=== PATIENT | male | born 1940 | race Caucasian/White ===

== ENCOUNTER 2016-11-22 13:07 | Inpatient (IN) | payer BC, MEDICARE ==
[2016-11-22] MEDS ORDERED: Ketorolac INJ* 30 MG/ML 1 ML VIAL IV ONE (13:49)
[2016-11-22] MEDS ORDERED: NS 0.9% 1000 ML* 1,000 ML IV ONE (13:49)
[2016-11-22 14:21] LABS: Hematocrit 42 % (42-52); Hemoglobin 13.8 g/dl (14.0-18.0); Mean Corpuscular HGB Conc 33 g/dl (31-36); Mean Corpuscular Hemoglobin 33 pg (27-31); Mean Corpuscular Volume 102 fL (80-94); Mean Platelet Volume 8 um3 (7.4-10.4); Red Blood Count 4.14 10^6/ul (4.0-5.4); Red Cell Distribution Width 16 % (10.5-15)
--- NOTE | 2016-11-22 14:35 | RAD ---
HISTORY: Shortness of breath COMPARISONS: May 14, 2007 VIEWS:1: Single frontal portable view of the chest at 2:15 PM FINDINGS: LINES AND TUBES: None. CARDIOMEDIASTINAL SILHOUETTE: The cardiac silhouette is enlarged. The cardiomediastinal silhouette is otherwise normal for portable technique. PLEURA: The costophrenic angles are sharp. No pleural abnormalities are noted. LUNG PARENCHYMA: The lungs are clear. ABDOMEN: The upper abdomen is clear. There is no subphrenic gas. BONES AND SOFT TISSUES: The patient is status post median sternotomy. IMPRESSION: CARDIOMEGALY
[2016-11-22 14:41] LABS: Albumin 3.7 g/dL (3.2-5.2); BUN/Creatinine Ratio 16.8 (8-20); C Reactive Protein 5.23 mg/L (< 5.00); Calcium 8.8 mg/dL (8.6-10.3); EGFR African American 61.5 (>60); EGFR Non-African American 47.8 (>60); Globulin 3.3 g/dL (2-4); Potassium 4.2 mmol/L (3.5-5.0)
[2016-11-22 14:42] LABS: Troponin I 0.01 ng/mL (<0.04)
[2016-11-22] MEDS ORDERED: Metoprolol Tartrate IV* 1 MG/ML 5 ML VIAL IV ONE (15:32)
[2016-11-22] MEDS ORDERED: Metoprolol Tartrate IV* 1 MG/ML 5 ML VIAL IV PRN ×2 (16:00→18:18)
[2016-11-22 16:02] LABS: Urine Bacteria 1+ (Absent); Urine Bilirubin Negative (Negative); Urine Glucose Negative (Negative); Urine Nitrite Positive (Negative)
[2016-11-22] MEDS ORDERED: Ciprofloxacin 400MG IVPREMIX(* 400 MG/200 ML BAG IVPB ONE (16:04)
[2016-11-22] MEDS ORDERED: Ondansetron INJ* 2 MG/ML VIAL IV PRN (18:15)
[2016-11-22] MEDS ORDERED: Acetaminophen TAB* 325 MG PO PRN (18:15)
[2016-11-22] MEDS ORDERED: NS 0.9% 1000 ML* 1,000 ML IV SCH ×2 (18:15→22:42)
--- NOTE | 2016-11-22 21:45 | HP ---
HISTORY AND PHYSICAL: ADDENDUM: Mr. Elmore is a 76-year-old male with history of status post mitral valve replacement with mechanical valve as well as atrial fibrillation, who presented to the hospital complaining of chills and rigors and he was noted to have slightly elevated temperature of 99.7 and possibility of UTI on urinalysis. He also was noted to be in atrial fibrillation with rapid ventricular response with heart rate into 130s to 120s. The patient is going to be placed on antibiotics and admitted to the hospital for further management as further described in the history and physical dictated by Michael Nava on with which I agree. [id number]/CPS #: [id number] MTDD
[2016-11-22] MEDS: Atorvastatin* 40 MG TAB PO SCH (21:53)
[2016-11-22] MEDS: Warfarin TAB(*) 2.5 MG PO SCH (21:53)
[2016-11-22] MEDS: cefTRIAXone VIAL(*) 1,000 MG in NS 0.9% 50 ML* 50 ML IVPB SCH (21:56)
--- NOTE | 2016-11-22 22:44 | HP ---
ATTENDING PHYSICIAN ADDENDUM NOW INCLUDED ON THIS REPORT HISTORY AND PHYSICAL: DATE OF ADMISSION: 11/22/16 PRIMARY CARE PROVIDER: Dr. Freire. ATTENDING PHYSICIAN WHILE IN THE HOSPITAL: Pascale Ventura MD* (report dictated by Michael Nava NP) CHIEF COMPLAINT: 1. Chills. 2. Shaking. HISTORY OF PRESENT ILLNESS: Mr. Elmore is a 76-year-old male patient who carries a history of AFib, hypothyroidism, hyperlipidemia and hypertension. He comes in today stating that they called 911 because he was having significant amount of chills and rigors that started right around suddenly on noon today. He states he has been having some trouble urination for the last day or so. He has noticed some dysuria and hurting to urinate. He denied having any flank pain or abdominal pain. No associated nausea or vomiting. No diarrhea. He states he has not been having any chest pain and no shortness of breath, no worse than his baseline. He was concerned because of the rigors. His friends called EMS. He was evaluated and they felt that he should come to the hospital. It was noticed that his blood pressure was low on the scene. He came into the ER, it was noted that he was in AFib with RVR and he was also noted to have blood pressure was stable, but it was ultimately found that he appeared to have UTI and because of these findings, the hospitalist service was asked to evaluate the patient. Again denied any other symptoms. No chest pain, no shortness of breath, no orthopnea, and he is not having any weight gain. He came in and was evaluated and we were asked to evaluate for admission. PAST MEDICAL HISTORY: Significant for: 1. Hypothyroidism. 2. Hyperlipidemia. 3. Hypertension. 4. Atrial fibrillation. PAST SURGICAL HISTORY: He has had a mitral valve replacement, it is mechanical. He is on chronic warfarin. HOME MEDICATIONS: According to the list that we were able to obtain include: 1. Warfarin 3.75 mg at bedtime. 2. Warfarin 2.5 mg Monday, Monday, and Monday. 3. Zocor 80 mg p.o. at bedtime. 4. Metoprolol 25 mg in the morning and 50 mg at bedtime. 5. Synthroid 125 mcg daily. 6. Lasix 40 mg a day. 7. Aspirin 81 mg daily. 8. Amiodarone 200 mg daily. ALLERGIES TO MEDICATIONS: Include no known drug allergies. FAMILY HISTORY: His mother had a history of cancer. Father had a history of rheumatic heart disease. SOCIAL HISTORY: He does not smoke. He does not drink alcohol. He lives alone. Surrogate decision maker is his second cousin, Ed. REVIEW OF SYSTEMS: There is no documented fever. He does admit to having chills and rigors. Denies any significant weight change. There was no double vision. There is no ear discharge. He denied having any rhinorrhea. There was no sore throat. No thyroid enlargement. Denied having any chest pain. No orthopnea, no nocturnal dyspnea. There was no abdominal pain. No nausea, no vomiting, no dysuria, no frequency. There was no loss of consciousness, no pruritus. There is no skin ulceration. Review of 14 systems completed, all others negative. PHYSICAL EXAMINATION GENERAL: At this time, Mr. Elmore is a 76-year-old male patient, he is sitting in the ER stretcher. He does not appear to be in any acute distress. VITAL SIGNS: Now currently reveals blood pressure 152/82 with pulse of 105, respirations were 20, O2 sat 96%, temperature 99.7. HEENT: Head is atraumatic and normocephalic. Eyes: EOMs are intact. His sclerae were anicteric, not pale. Throat: Oral mucosa appeared to be dry. No oropharyngeal erythema. NECK: Supple. LUNGS: He had wheezing in the right lower lobe only and equal diaphragmatic expansion. HEART: Sounds S1 and S2, irregularly irregular rate. No murmurs, rubs, or gallops. ABDOMEN: Soft, it was flat, nontender. Bowel sounds are present. He had no CVA tenderness. EXTREMITIES: He had what appears to be chronic lymphedema in the lower extremities and +2 pitting edema. He is able to move all 4 extremities with 5/ 5 strength. NEUROLOGIC: The patient is awake. He is alert. He is oriented x3. His tongue is midline. Sack Sorter were equal. No gross focal deficits. SKIN: Intact. LABORATORY DATA: Today revealed WBC of 8.0, RBC of 4.14, hemoglobin 13.8, hematocrit of 42, platelet count of 171. INR was 3.02. His sodium was 137, potassium 4.2, chloride 99, bicarb 31, BUN 24, creatinine 1.43. I do not have a previous for comparison. Glucose of 111, lactic 1.4, calcium 8.8, total bili 1.0, AST 18, ALT 13, alk phos 58, troponin 0.01, albumin of 3.7. Urine showed trace ketones, 1+ blood, positive nitrite, 1+ bacteria, 3+ rbc's, 3+ wbc's. There was a chest x-ray obtained today as well, which revealed cardiomegaly. They did not appreciate any infiltrates or effusion. EKG today shows atrial fibrillation, rate of 105. No ST elevations or T-wave inversions. It was reviewed with the previous EKG. The previous EKG showed a sinus bradycardia and that was from 2006. Old medical records were reviewed. ASSESSMENT AND PLAN: Mr. Elmore is a 76-year-old male patient coming into the ER today with complaints of chills and not feeling well. I suspect that he was having rigors probably secondary to the fact that he has a urinary tract infection. He will be admitted under inpatient status for: 1. Urinary tract infection with rigors. At this point, we will go ahead and panculture the patient. He got a liter of fluids in the ER, I do not want to give him too much too fast. He did have a little bit of wheeze on exam, but I think he is a little dry. I am going to give him another liter at 75 an hour over the night and I will continue to follow him. We will give him Rocephin prior to panculture him. We will continue to follow. 2. Atrial fibrillation with rapid ventricular response. I will go ahead and continue beta-blockers. He has been taking them at home. I have ordered p.r.n. Lopressor for rate sustained greater than 120. 3. Hypothyroidism. Continue his Synthroid. 4. Hyperlipidemia. Continue his statin therapy. 5. Hypertension. Continue meds as prescribed. 6. History of mitral valve replacement. He does have clicking on exam when I listened to auscultated heart sounds. His INR is right where it should be. We will continue with this. 7. Code status. Full code. 8. Fluids, electrolytes, and nutrition. He can have a heart healthy diet. TIME SPENT: Time spent on the admission was 70 minutes, greater than half the time was spent [id number] with the patient obtaining my history and physical, and the other half time was spent going over the plan of care with the patient and implementing plan of care. I did discuss the plan of care with my attending, Dr. Ventura, she is in agreement. MICHAEL NAVA NP ADDENDUM: Mr. Elmore is a 76-year-old male with history of status post mitral valve replacement with mechanical valve as well as atrial fibrillation, who presented to the hospital complaining of chills and rigors and he was noted to have slightly elevated temperature of 99.7 and possibility of UTI on urinalysis. He also was noted to be in atrial fibrillation with rapid ventricular response with heart rate into 130s to 120s. The patient is going to be placed on antibiotics and admitted to the hospital for further management as further described in the history and physical dictated by Michael Nava on 11/22/16 with which I agree. PASCALE VENTURA MD CC: Dr. Freire * [id number]/CPS #: [id number]/CPS #: [id number] MTDZaira
[2016-11-23 04:45] LABS: Hematocrit 35 % (42-52); Hemoglobin 11.5 g/dl (14.0-18.0); Mean Corpuscular HGB Conc 33 g/dl (31-36); Mean Corpuscular Hemoglobin 34 pg (27-31); Mean Corpuscular Volume 102 fL (80-94); Mean Platelet Volume 8 um3 (7.4-10.4); Red Blood Count 3.44 10^6/ul (4.0-5.4); Red Cell Distribution Width 15 % (10.5-15); White Blood Count 14.4 10^3/ul (3.5-10.8)
[2016-11-23 04:47] LABS: Add Diff/Slide Review? Slide Review Added; Comments Flag Yes
[2016-11-23 04:49] LABS: BUN/Creatinine Ratio 17.9 (8-20); Calcium 7.6 mg/dL (8.6-10.3); EGFR African American 60.5 (>60); EGFR Non-African American 47.1 (>60)
[2016-11-23] MEDS: Levothyroxine TAB* 125 MCG TAB PO SCH (05:00)
[2016-11-23 05:37] LABS: Immature Granulocytes 22 % (0-9); Macrocytosis 1+; Microcytosis 1+; Neutrophil % 75 % (38-83)
[2016-11-23] MEDS: Metoprolol Tartrate TAB* 25 MG PO SCH (07:32)
[2016-11-23] MEDS ORDERED: NS 0.9% 1000 ML* 1,000 ML IV ONE ×2 (07:33→09:30)
[2016-11-23] MEDS: Aspirin EC Low Dose* 81 MG TAB.EC PO SCH (08:36)
[2016-11-23] MEDS: Amiodarone TAB* 200 MG PO SCH (08:36)
[2016-11-23] MEDS ORDERED: Metoprolol Tartrate TAB* 50 mg PO SCH ×2 (09:00→18:00)
[2016-11-23] MEDS ORDERED: Furosemide TAB* 40 MG PO SCH (09:00)
--- NOTE | 2016-11-23 10:01 | PN ---
Subjective Date of Service: 11/23/16 Interval History: Pt is feeling ok. He denies any lightheadedness/dizziness. No CP or SOB. Objective Active Medications: Acetaminophen (Tylenol Tab*) 650 mg PO Q4H PRN PRN Reason: FEVER/PAIN Amiodarone HCl (Cordarone Tab*) 200 mg PO DAILY [facility] Last Admin: 11/23/16 08:36 Dose: 200 mg Aspirin (Aspirin Ec Low Dose*) 81 mg PO DAILY [facility] Last Admin: 11/23/16 08:36 Dose: 81 mg Atorvastatin Calcium (Lipitor*) 40 mg PO BEDTIME [facility] Last Admin: 11/22/16 21:53 Dose: 40 mg Ceftriaxone Sodium 1,000 mg/ (Sodium Chloride) 50 mls @ 200 mls/hr IVPB Q24H [facility] Last Admin: 11/22/16 21:56 Dose: 200 mls/hr Sodium Chloride (Ns 0.9% 1000 Ml*) 1,000 mls @ 1,000 mls/hr IV ONCE ONE Stop: 11/23/16 10:29 Last Admin: 11/23/16 09:36 Dose: 1,000 mls/hr Levothyroxine Sodium (Synthroid Tab*) 125 mcg PO 0600 [facility] Last Admin: 11/23/16 05:00 Dose: 125 mcg Metoprolol Tartrate (Lopressor Iv*) 5 mg IV Q6H PRN PRN Reason: HEART RATE/PULSE Metoprolol Tartrate (Lopressor Tab*) 50 mg PO QPM [facility] Metoprolol Tartrate (Lopressor Tab*) 25 mg PO QAM [facility] Last Admin: 11/23/16 07:32 Dose: Not Given Ondansetron HCl (Zofran Inj*) 4 mg IV Q6H PRN PRN Reason: NAUSEA Warfarin Sodium (Coumadin Tab(*)) 3.75 mg PO SuTuThSa@1700 [facility] PRN Reason: Protocol Last Admin: 11/22/16 21:53 Dose: 3.75 mg Warfarin Sodium (Coumadin Tab(*)) 2.5 mg PO MoWeFr@1700 [facility] PRN Reason: Protocol Vital Signs 11/22/16 11/22/16 11/22/16 18:18 18:21 19:00 Temperature 99.7 F Pulse Rate 128 Respiratory 16 28 25 Rate Blood Pressure 115/76 82/52 (mmHg) O2 Sat by Pulse Oximetry 05/02/17 05/02/17 05/02/17 19:13 19:17 20:00 Temperature 98.1 F Pulse Rate 113 Respiratory 22 22 Rate Blood Pressure 90/54 87/51 (mmHg) O2 Sat by Pulse 95 95 Oximetry 11/22/16 11/22/16 11/23/16 20:05 20:36 00:21 Temperature 99.5 F Pulse Rate 187 Respiratory 20 Rate Blood Pressure 119/94 109/79 83/50 (mmHg) O2 Sat by Pulse 93 Oximetry 11/23/16 11/23/16 11/23/16 00:32 07:15 07:26 Temperature 99.0 F Pulse Rate 87 19 Respiratory 20 16 Rate Blood Pressure 84/44 (mmHg) O2 Sat by Pulse 97 97 Oximetry 11/23/16 11/23/16 08:34 08:53 Temperature Pulse Rate Respiratory Rate Blood Pressure 86/62 (mmHg) O2 Sat by Pulse 97 Oximetry Oxygen Devices in Use Now: None Appearance: Elderly, morbidly obese male sitting up in bed, NAD Eyes: No Scleral Icterus Ears/Nose/Mouth/Throat: Mucous Membranes Moist Respiratory: Symmetrical Chest Expansion and Respiratory Effort, Clear to Auscultation, - - irregularly irregular-mechanical click Cardiovascular: No Edema, - Abdominal: NL Sounds; No Tenderness; No Distention - obese Extremities: No Clubbing, Cyanosis, - - skin changes consistent with chronic venous stasis Skin: No Rash or Ulcers, No Nodules or Sclerosis Neurological: Alert and Oriented x 3 Result Diagrams: 11/23/16 04:28 11/23/16 04:28 Assess/Plan/Problems-Billing Mr Elmore is a 76 yo M who has a h/o HTN, afib, hypothyroidism and HLD who presented to the ER with c/o rigors and dysuria. - Patient Problems (1) Gram negative sepsis Current Visit: Yes Status: Acute Comment: The patient was found to have an Ecoli UTI on admission. Blood cultures from admission are positive for for gram negative bacilli (this is likely the same Ecoli cultured out of the patient's urine). The patient is septic based on sepsis 3 criteria with a SOFA score is currently 3 (1 point each for MAP<70, Plt <150 and Cr 1.2-1.9). The patient is severely septic based on sepis 2 criteria with tachycardia, bandemia/ leukocytosis and positive infection. Additionally the patient has evidence of end organ dysfunction with the elevated creatinine. Will continue treating with ceftriaxone for now-await urine/blood cultures and sensitivities. Aggressively hydrate the patient as he hypotensive secondary to the sepsis. (2) UTI (urinary tract infection) Current Visit: Yes Status: Acute Comment: Continue ceftriaxone. The urine is growing Ecoli. ? if pt should be treated likely prostatitis- will discuss with ID. (3) HTN (hypertension) Current Visit: Yes Status: Acute Code(s): I10 - ESSENTIAL (PRIMARY) HYPERTENSION SNOMED Code(s): 58113033 Comment: Pt is currently hypotensive. Will aggressively hydrate. Hold oral antihypertensives. If the patient's BP does not improve with several more liters of fluid or if he appears to be decompensating willl transfer to the ICU for consideration of pressors. (4) Afib Current Visit: Yes Status: Acute Code(s): I48.91 - UNSPECIFIED ATRIAL FIBRILLATION SNOMED Code(s): 28471724 Comment: Pt's HR is currently uncontrolled. Likely still related to being volume deplete. Will continue to hydrate and monitor the HR. Holding BBlocker secondary to hypotension. Continue amiodarone at home dose for now. Continue coumadin at home dose for both afib and h/o mechanical mitral valve. (5) Hypothyroid Current Visit: Yes Status: Acute Code(s): E03.9 - HYPOTHYROIDISM, UNSPECIFIED SNOMED Code(s): 24018794 Comment: Check TSH-continue home dose of synthroid. (6) DVT prophylaxis Current Visit: Yes Status: Acute Code(s): XEW5560 - SNOMED Code(s): 354915596 Comment: therapeutic INR (7) Full code status Current Visit: Yes Status: Acute Code(s): Z78.9 - OTHER SPECIFIED HEALTH STATUS SNOMED Code(s): 591237924
[2016-11-23] MEDS ORDERED: NS 0.9% 250 ML* 250 ML IV SCH (11:00)
--- NOTE | 2016-11-23 11:30 | RAD ---
INDICATION: PICC line insertion COMPARISON: November 22, 2016 TECHNIQUE: An AP portable view obtained at 1045 hours is submitted. FINDINGS: Bones/Soft Tissues: There are no acute bony findings. There is sternotomy with valvular surgery. There is interval placement of right-sided PICC catheter which is directed into the jugular vein Cardiomediastinal: The cardiac silhouette is enlarged.. Lungs: There are no infiltrates. The left costophrenic angle was not included in the [id number] Pleura: There are no pleural effusions. Other: None IMPRESSION: THE PICC CATHETER IS DIRECTED INTO THE INTERNAL JUGULAR VEIN. THE REMAINDER THE EXAMINATION IS UNCHANGED. FINDINGS CALLED TO FLOOR
[2016-11-23 11:48] LABS: TSH (Thyroid Stimulating Horm) 1.49 mcIU/mL (0.34-5.60)
--- NOTE | 2016-11-23 12:14 | RAD ---
INDICATION: Assess PICC catheter positioning COMPARISON: Chest x-ray same date TECHNIQUE: An AP portable view of the right neck is submitted. FINDINGS: The PICC catheter is in the internal jugular with approximately 9 cm of catheter within this vessel. IMPRESSION: THE PICC PICC CATHETER IS IN THE JUGULAR VEIN
--- NOTE | 2016-11-23 13:44 | RAD ---
INDICATION: PICC line reposition. COMPARISON: Comparison is made with a prior chest x-ray study of the same date from approximately 2 hours earlier. TECHNIQUE: A portable view of the chest was obtained. FINDINGS: The patient is status post sternotomy. The heart is moderately enlarged and unchanged. There is a PICC present which has been repositioned. The catheter tip projects in the right subclavian region and previously projected over the internal jugular vein region. The lungs are clear. No pleural effusion is seen. IMPRESSION: THE PICC CATHETER TIP PROJECTS IN THE RIGHT SUBCLAVIAN REGION.
[2016-11-23] MEDS: Warfarin TAB(*) 2.5 MG PO SCH (16:41)
[2016-11-23] MEDS: NS 0.9% 1000 ML* 1,000 ML IV SCH (16:43)
[2016-11-23] MEDS: Metoprolol Tartrate TAB* 50 mg PO SCH (18:35)
--- NOTE | 2016-11-23 19:50 | ED ---
J Luis Mustafa Matthew, scribed for Smooth Canales MD on 11/22/16 at 1343 . Shortness of Breath - HPI Summary HPI Summary: A 76 y/o male presents to the ED with SOB since this afternoon. The patient was at a [employer], a [employer] sale, when the other volunteers noticed he was uncontrollably shaking associated chills. In the ED it was noted that he had a fever. The patient denies SOB, nausea, and urinary symptoms. Hx of AFib and COPD. - History of Current Complaint Chief Complaint: EDShortnessOfBreath Time Seen by Provider: 11/22/16 13:21 Hx Obtained From: Patient Onset/Duration: Lasting Hours, Still Present Timing: Constant Current Severity: Moderate Dyspnea At: Rest Associated Signs & Symptoms: Fever, Chills - Allergy/Home Medications Allergies/Adverse Reactions: Allergies Allergy/AdvReac Type Severity Reaction Status Date / Time No Known Allergies Allergy Verified 11/22/16 14:15 Home Medications: Home Medications Amiodarone TAB* [Cordarone TAB*] 200 mg PO DAILY 11/22/16 [History Confirmed 09/09] Aspirin EC Low Dose* [Ecotrin EC Low Dose 81 MG*] 81 mg PO DAILY 11/22/16 [ History Confirmed 11/22/16] Furosemide TAB* [Lasix TAB*] 40 mg PO DAILY 11/22/16 [History Confirmed 11/22/16 ] Levothyroxine TAB* [Synthroid TAB*] 125 mcg PO DAILY 11/22/16 [History Confirmed 11/22/16] Metoprolol Tartrate TAB* [Lopressor TAB*] 25 mg PO QAM 11/22/16 [History Confirmed 11/22/16] Metoprolol Tartrate TAB* [Lopressor TAB*] 50 mg PO QPM 11/22/16 [History Confirmed 11/22/16] Simvastatin (NF) [Zocor (NF)] 80 mg PO BEDTIME 11/22/16 [History Confirmed 11/22] Warfarin TAB(*) [Coumadin TAB(*)] 2.5 mg PO MOWEFR 11/22/16 [History Confirmed 11/22/16] Warfarin TAB(*) [Coumadin TAB(*)] 3.75 mg PO SUTUTHSA 11/22/16 [History Confirmed 05/02/17] PMH/Surg Hx/FS Hx/Imm Hx Cardiovascular History: Reports: Hx Atrial Fibrillation Respiratory History: Reports: Hx Chronic Obstructive Pulmonary Disease (COPD) - Surgical History Surgery Procedure, Year, and Place: Heart Valve Replacement Infectious Disease History: Denies: Traveled Outside the [place] in Last 30 Days - Family History Family History: FHx of [place] - Social History Alcohol Use: Rare Hx Substance Use: No Substance Use Type: Reports: None Hx Tobacco Use: No Review of Systems Constitutional: Other - tremors Positive: Fever, Chills Eyes: Negative ENT: Negative Cardiovascular: Negative Negative: Chest Pain Positive: Shortness Of Breath Gastrointestinal: Negative Negative: Abdominal Pain, Vomiting, Diarrhea, Nausea Genitourinary: Negative Musculoskeletal: Negative Skin: Negative Neurological: Negative Psychological: Normal All Other Systems Reviewed And Are Negative: Yes Physical Exam Triage Information Reviewed: Yes Vital Signs On Initial Exam: Initial Vitals Temp Pulse Resp BP Pulse Ox 98.6 F 88 20 105/60 96 11/22/16 13:14 11/22/16 13:14 11/22/16 13:14 11/22/16 13:14 11/22/16 13:14 Vital Signs Reviewed: Yes Appearance: Positive: Well-Appearing, No Pain Distress, Obese - morbidly Skin: Positive: Warm, Skin Color Reflects Adequate Perfusion, Dry Head/Face: Positive: Normal Head/Face Inspection Eyes: Positive: EOMI, PABLO ENT: Positive: Normal ENT inspection Neck: Positive: Supple, Nontender Respiratory/Lung Sounds: Positive: Clear to Auscultation, Breath Sounds Present , Other - mildly tachypneic Cardiovascular: Positive: RRR Abdomen Description: Positive: Nontender, Soft Bowel Sounds: Positive: Present Musculoskeletal: Positive: Strength/ROM Intact Neurological: Positive: Alert, Oriented to Person Place, Time Psychiatric: Positive: Affect/Mood Appropriate Diagnostics - Vital Signs Vital Signs Temp Pulse Resp BP Pulse Ox 11/22/16 13:16 98.6 F 102 24 140/62 98 11/22/16 13:14 98.6 F 88 20 105/60 96 - Laboratory Lab Results: Lab Results 11/22/16 11/22/16 11/22/16 Range/Units 14:13 14:13 14:13 WBC 8.0 (3.5-10.8) 10^3/ul RBC 4.14 (4.0-5.4) 10^6/ul Hgb 13.8 L (14.0-18.0) g/dl Hct 42 (42-52) % MCV 102 H (80-94) fL MCH 33 H (27-31) pg MCHC 33 (31-36) g/dl RDW 16 H (10.5-15) % Plt Count 171 (150-450) 10^3/ul MPV 8 (7.4-10.4) um3 Neut % (Auto) 97.5 H (38-83) % Lymph % (Auto) 1.4 L (25-47) % [place] % (Auto) 0.4 L (1-9) % Eos % (Auto) 0.4 (0-6) % Baso % (Auto) 0.3 (0-2) % Absolute Neuts (auto) 7.8 H (1.5-7.7) 10^3/ul Absolute Lymphs (auto) 0.1 L (1.0-4.8) 10^3/ul Absolute Monos (auto) 0 (0-0.8) 10^3/ul Absolute Eos (auto) 0 (0-0.6) 10^3/ul Absolute Basos (auto) 0 (0-0.2) 10^3/ul Absolute Nucleated RBC 0.01 10^3/ul Nucleated RBC % 0.1 INR (Anticoag Therapy) 3.02 H (0.89-1.11) Sodium 137 (133-145) mmol/L Potassium 4.2 (3.5-5.0) mmol/L Chloride 99 L (101-111) mmol/L Carbon Dioxide 31 (22-32) mmol/L Anion Gap 7 (2-11) mmol/L BUN 24 (6-24) mg/dL Creatinine 1.43 H (0.67-1.17) mg/dL Est GFR ( Amer) 61.5 (>60) Est GFR (Non-Af Amer) 47.8 (>60) BUN/Creatinine Ratio 16.8 (8-20) Glucose 111 H (70-100) mg/dL Lactic Acid (0.5-2.0) mmol/L Calcium 8.8 (8.6-10.3) mg/dL Total Bilirubin 1.00 (0.2-1.0) mg/dL AST 18 (13-39) U/L ALT 13 (7-52) U/L Alkaline Phosphatase 58 (34-104) U/L Troponin I 0.01 (<0.04) ng/mL C-Reactive Protein 5.23 H (< 5.00) mg/L B-Natriuretic Peptide ( - 100) pg/mL Total Protein 7.0 (6.4-8.9) g/dL Albumin 3.7 (3.2-5.2) g/dL Globulin 3.3 (2-4) g/dL Albumin/Globulin Ratio 1.1 (1-3) Urine Color Urine Appearance Urine pH (5-9) Ur Specific [place] (1.010-1.030) Urine Protein (Negative) Urine Ketones (Negative) Urine Blood (Negative) Urine Nitrate (Negative) Urine Bilirubin (Negative) Urine Urobilinogen (Negative) Ur Leukocyte Esterase (Negative) Urine WBC (Auto) (Absent) Urine RBC (Auto) (Absent) Urine Bacteria (Absent) Urine Glucose (Negative) 11/22/16 11/22/16 11/22/16 Range/Units 14:13 14:13 15:43 WBC (3.5-10.8) 10^3/ul RBC (4.0-5.4) 10^6/ul Hgb (14.0-18.0) g/dl Hct (42-52) % MCV (80-94) fL MCH (27-31) pg MCHC (31-36) g/dl RDW (10.5-15) % Plt Count (150-450) 10^3/ul MPV (7.4-10.4) um3 Neut % (Auto) (38-83) % Lymph % (Auto) (25-47) % [place] % (Auto) (1-9) % Eos % (Auto) (0-6) % Baso % (Auto) (0-2) % Absolute Neuts (auto) (1.5-7.7) 10^3/ul Absolute Lymphs (auto) (1.0-4.8) 10^3/ul Absolute Monos (auto) (0-0.8) 10^3/ul Absolute Eos (auto) (0-0.6) 10^3/ul Absolute Basos (auto) (0-0.2) 10^3/ul Absolute Nucleated RBC 10^3/ul Nucleated RBC % INR (Anticoag Therapy) (0.89-1.11) Sodium (133-145) mmol/L Potassium (3.5-5.0) mmol/L Chloride (101-111) mmol/L Carbon Dioxide (22-32) mmol/L Anion Gap (2-11) mmol/L BUN (6-24) mg/dL Creatinine (0.67-1.17) mg/dL Est GFR ( Amer) (>60) Est GFR (Non-Af Amer) (>60) BUN/Creatinine Ratio (8-20) Glucose (70-100) mg/dL Lactic Acid 1.4 (0.5-2.0) mmol/L Calcium (8.6-10.3) mg/dL Total Bilirubin (0.2-1.0) mg/dL AST (13-39) U/L ALT (7-52) U/L Alkaline Phosphatase (34-104) U/L Troponin I (<0.04) ng/mL C-Reactive Protein (< 5.00) mg/L B-Natriuretic Peptide 252 H ( - 100) pg/mL Total Protein (6.4-8.9) g/dL Albumin (3.2-5.2) g/dL Globulin (2-4) g/dL Albumin/Globulin Ratio (1-3) Urine Color Yellow Urine Appearance Cloudy Urine pH 6.0 (5-9) Ur Specific [place] 1.017 (1.010-1.030) Urine Protein Negative (Negative) Urine Ketones Trace H (Negative) Urine Blood 1+ H (Negative) Urine Nitrate Positive H (Negative) Urine Bilirubin Negative (Negative) Urine Urobilinogen Negative (Negative) Ur Leukocyte Esterase 3+ H (Negative) Urine WBC (Auto) 3+(>20/hpf) H (Absent) Urine RBC (Auto) 3+(>10/hpf) H (Absent) Urine Bacteria 1+ H (Absent) Urine Glucose Negative (Negative) 11/22/16 Range/Units 18:09 WBC (3.5-10.8) 10^3/ul RBC (4.0-5.4) 10^6/ul Hgb (14.0-18.0) g/dl Hct (42-52) % MCV (80-94) fL MCH (27-31) pg MCHC (31-36) g/dl RDW (10.5-15) % Plt Count (150-450) 10^3/ul MPV (7.4-10.4) um3 Neut % (Auto) (38-83) % Lymph % (Auto) (25-47) % [place] % (Auto) (1-9) % Eos % (Auto) (0-6) % Baso % (Auto) (0-2) % Absolute Neuts (auto) (1.5-7.7) 10^3/ul Absolute Lymphs (auto) (1.0-4.8) 10^3/ul Absolute Monos (auto) (0-0.8) 10^3/ul Absolute Eos (auto) (0-0.6) 10^3/ul Absolute Basos (auto) (0-0.2) 10^3/ul Absolute Nucleated RBC 10^3/ul Nucleated RBC % INR (Anticoag Therapy) (0.89-1.11) Sodium (133-145) mmol/L Potassium (3.5-5.0) mmol/L Chloride (101-111) mmol/L Carbon Dioxide (22-32) mmol/L Anion Gap (2-11) mmol/L BUN (6-24) mg/dL Creatinine (0.67-1.17) mg/dL Est GFR ( Amer) (>60) Est GFR (Non-Af Amer) (>60) BUN/Creatinine Ratio (8-20) Glucose (70-100) mg/dL Lactic Acid 1.5 (0.5-2.0) mmol/L Calcium (8.6-10.3) mg/dL Total Bilirubin (0.2-1.0) mg/dL AST (13-39) U/L ALT (7-52) U/L Alkaline Phosphatase (34-104) U/L Troponin I (<0.04) ng/mL C-Reactive Protein (< 5.00) mg/L B-Natriuretic Peptide ( - 100) pg/mL Total Protein (6.4-8.9) g/dL Albumin (3.2-5.2) g/dL Globulin (2-4) g/dL Albumin/Globulin Ratio (1-3) Urine Color Urine Appearance Urine pH (5-9) Ur Specific [place] (1.010-1.030) Urine Protein (Negative) Urine Ketones (Negative) Urine Blood (Negative) Urine Nitrate (Negative) Urine Bilirubin (Negative) Urine Urobilinogen (Negative) Ur Leukocyte Esterase (Negative) Urine WBC (Auto) (Absent) Urine RBC (Auto) (Absent) Urine Bacteria (Absent) Urine Glucose (Negative) Result Diagrams: 11/23/16 04:28 11/23/16 04:28 Lab Statement: Any lab studies that have been ordered have been reviewed, and results considered in the medical decision making process. - Radiology CXR Xray Interpretation: Positive (See Comments) - IMPRESSION: CARDIOMEGALY Radiology Interpretation Completed By: Radiologist - EKG 13:16 Cardiac Rate: Tachycardia - 105 bpm EKG Rhythm: Atrial Fibrillation EKG Interpretation: Baseline Artifact Course/Dx - Course Course Of Treatment: Mr. Elmore came in to the ED with a sudden onset of shaking chills. He met sepsis criteria on arrival with tachycardia and fever and leukocytosis. He was found to have a UTI and treated with fluids and antibiotics. - Diagnoses Provider Diagnoses: UTI (urinary tract infection), Sepsis Discharge - Discharge Plan Condition: Stable Disposition: ADMITTED TO [facility] The documentation as recorded by the J Luis pedersen Matthew accurately reflects the service I personally performed and the decisions made by me, Smooth Canales MD.
[2016-11-23] MEDS: cefTRIAXone VIAL(*) 1,000 MG in NS 0.9% 50 ML* 50 ML IVPB SCH (20:44)
[2016-11-23] MEDS: Atorvastatin* 40 MG TAB PO SCH (20:47)
[2016-11-24] MEDS: NS 0.9% 1000 ML* 1,000 ML IV SCH (04:16)
[2016-11-24] MEDS: Levothyroxine TAB* 125 MCG TAB PO SCH (05:40)
[2016-11-24 08:38] LABS: Hematocrit 34 % (42-52); Hemoglobin 11.2 g/dl (14.0-18.0); Mean Corpuscular HGB Conc 33 g/dl (31-36); Mean Corpuscular Hemoglobin 33 pg (27-31); Mean Corpuscular Volume 102 fL (80-94); Mean Platelet Volume 8 um3 (7.4-10.4); Red Blood Count 3.36 10^6/ul (4.0-5.4); Red Cell Distribution Width 16 % (10.5-15); White Blood Count 7.4 10^3/ul (3.5-10.8)
[2016-11-24 08:56] LABS: BUN/Creatinine Ratio 17.4 (8-20); Calcium 7.5 mg/dL (8.6-10.3); EGFR African American 84.1 (>60); EGFR Non-African American 65.4 (>60); Potassium 4.1 mmol/L (3.5-5.0)
[2016-11-24] MEDS: Amiodarone TAB* 200 MG PO SCH (09:02)
[2016-11-24] MEDS: Metoprolol Tartrate TAB* 25 MG PO SCH (09:02)
[2016-11-24] MEDS: Aspirin EC Low Dose* 81 MG TAB.EC PO SCH (09:03)
--- NOTE | 2016-11-24 11:03 | PN ---
Subjective Date of Service: 11/24/16 Interval History: Pt is feeling well this AM. He felt SOB earlier but states he is feeling better now that the has humidified O2. He denies any pain. Objective Active Medications: Acetaminophen (Tylenol Tab*) 650 mg PO Q4H PRN PRN Reason: FEVER/PAIN Last Admin: 11/23/16 15:40 Dose: 650 mg Amiodarone HCl (Cordarone Tab*) [address] [facility] Last Admin: 11/24/16 09:02 Dose: 200 mg Aspirin (Aspirin Ec Low Dose*) [address] [facility] Last Admin: 11/24/16 09:03 Dose: 81 mg Atorvastatin Calcium (Lipitor*) [address] [facility] Last Admin: 11/23/16 20:47 Dose: 40 mg Heparin Sodium (Porcine) (Heparin Flush Picc/Ml/Cvc(*)) 1 - 3 ml FLUSH 0600, 1800 [facility] PRN Reason: Protocol Last Admin: 11/24/16 05:41 Dose: 1 ml Ceftriaxone Sodium 1,000 mg/ (Sodium Chloride) 50 mls @ 200 mls/hr IVPB Q24H [facility] Last Admin: 11/23/16 20:44 Dose: 200 mls/hr Levothyroxine Sodium (Synthroid Tab*) [address] [facility] Last Admin: 11/24/16 05:40 Dose: 125 mcg Metoprolol Tartrate (Lopressor Iv*) 5 mg IV Q6H PRN PRN Reason: HEART RATE/PULSE Metoprolol Tartrate (Lopressor Tab*) [address] [facility] Last Admin: 11/23/16 18:35 Dose: Not Given Metoprolol Tartrate (Lopressor Tab*) [address] [facility] Last Admin: 11/24/16 09:02 Dose: 25 mg Ondansetron HCl (Zofran Inj*) 4 mg IV Q6H PRN PRN Reason: NAUSEA Warfarin Sodium (Coumadin Tab(*)) 3.75 mg PO SuTuThSa@1700 [facility] PRN Reason: Protocol Last Admin: 11/22/16 21:53 Dose: 3.75 mg Warfarin Sodium (Coumadin Tab(*)) 2.5 mg PO MoWeFr@1700 [facility] PRN Reason: Protocol Last Admin: 11/23/16 16:41 Dose: 2.5 mg Vital Signs 11/23/16 11/23/16 11/23/16 11:08 12:24 13:27 Temperature 99.1 F Pulse Rate 125 114 57 Respiratory 20 20 32 Rate Blood Pressure 80/49 110/68 145/97 (mmHg) O2 Sat by Pulse 97 96 97 Oximetry 11/23/16 11/23/16 11/23/16 14:52 15:28 18:35 Temperature 99.1 F 101.6 F Pulse Rate 134 Respiratory 20 Rate Blood Pressure 106/55 100/50 (mmHg) O2 Sat by Pulse 95 Oximetry 11/23/16 11/23/16 11/23/16 19:37 20:00 23:22 Temperature 99.2 F 97.9 F Pulse Rate 47 123 Respiratory 18 24 24 Rate Blood Pressure 95/64 94/57 (mmHg) O2 Sat by Pulse 96 93 92 Oximetry 11/24/16 11/24/16 11/24/16 03:44 07:18 07:27 Temperature 98.5 F 99.0 F Pulse Rate 84 86 Respiratory 20 20 24 Rate Blood Pressure 144/113 126/62 (mmHg) O2 Sat by Pulse 94 94 Oximetry 11/24/16 11/24/16 08:00 08:23 Temperature Pulse Rate Respiratory Rate Blood Pressure (mmHg) O2 Sat by Pulse 91 91 Oximetry Oxygen Devices in Use Now: None Appearance: Elderly, obese male lying in bed, NAD Eyes: No Scleral Icterus Ears/Nose/Mouth/Throat: Mucous Membranes Moist Respiratory: Symmetrical Chest Expansion and Respiratory Effort, Clear to Auscultation Cardiovascular: NL Sounds; No Murmurs; No JVD, - - irregularly irregular, mildly tachycardic, trace LE edema bilaterally Abdominal: NL Sounds; No Tenderness; No Distention Extremities: No Clubbing, Cyanosis Skin: No Rash or Ulcers, No Nodules or Sclerosis, - - chronic venous stasis changes to the B/L LE Neurological: Alert and Oriented x 3 Result Diagrams: 11/24/16 08:00 11/24/16 08:00 Additional Lab and Data: Lab Results 11/22/16 11/22/16 11/22/16 Range/Units 14:13 14:13 14:13 WBC 8.0 (3.5-10.8) 10^3/ul RBC 4.14 (4.0-5.4) 10^6/ul Hgb 13.8 L (14.0-18.0) g/dl Hct 42 (42-52) % MCV 102 H (80-94) fL MCH 33 H (27-31) pg MCHC 33 (31-36) g/dl RDW 16 H (10.5-15) % Plt Count 171 (150-450) 10^3/ul MPV 8 (7.4-10.4) um3 Neut % (Auto) 97.5 H (38-83) % Lymph % (Auto) 1.4 L (25-47) % [place] % (Auto) 0.4 L (1-9) % Eos % (Auto) 0.4 (0-6) % Baso % (Auto) 0.3 (0-2) % Absolute Neuts (auto) 7.8 H (1.5-7.7) 10^3/ul Absolute Lymphs (auto) 0.1 L (1.0-4.8) 10^3/ul Absolute Monos (auto) 0 (0-0.8) 10^3/ul Absolute Eos (auto) 0 (0-0.6) 10^3/ul Absolute Basos (auto) 0 (0-0.2) 10^3/ul Absolute Nucleated RBC 0.01 10^3/ul Nucleated RBC % 0.1 INR (Anticoag Therapy) 3.02 H (0.89-1.11) Sodium 137 (133-145) mmol/L Potassium 4.2 (3.5-5.0) mmol/L Chloride 99 L (101-111) mmol/L Carbon Dioxide 31 (22-32) mmol/L Anion Gap 7 (2-11) mmol/L BUN 24 (6-24) mg/dL Creatinine 1.43 H (0.67-1.17) mg/dL Est GFR ( Amer) 61.5 (>60) Est GFR (Non-Af Amer) 47.8 (>60) BUN/Creatinine Ratio 16.8 (8-20) Glucose 111 H (70-100) mg/dL Lactic Acid (0.5-2.0) mmol/L Calcium 8.8 (8.6-10.3) mg/dL Total Bilirubin 1.00 (0.2-1.0) mg/dL AST 18 (13-39) U/L ALT 13 (7-52) U/L Alkaline Phosphatase 58 (34-104) U/L Troponin I 0.01 (<0.04) ng/mL C-Reactive Protein 5.23 H (< 5.00) mg/L B-Natriuretic Peptide ( - 100) pg/mL Total Protein 7.0 (6.4-8.9) g/dL Albumin 3.7 (3.2-5.2) g/dL Globulin 3.3 (2-4) g/dL Albumin/Globulin Ratio 1.1 (1-3) Urine Color Urine Appearance Urine pH (5-9) Ur Specific [place] (1.010-1.030) Urine Protein (Negative) Urine Ketones (Negative) Urine Blood (Negative) Urine Nitrate (Negative) Urine Bilirubin (Negative) Urine Urobilinogen (Negative) Ur Leukocyte Esterase (Negative) Urine WBC (Auto) (Absent) Urine RBC (Auto) (Absent) Urine Bacteria (Absent) Urine Glucose (Negative) 11/22/16 11/22/16 11/22/16 Range/Units 14:13 14:13 15:43 WBC (3.5-10.8) 10^3/ul RBC (4.0-5.4) 10^6/ul Hgb (14.0-18.0) g/dl Hct (42-52) % MCV (80-94) fL MCH (27-31) pg MCHC (31-36) g/dl RDW (10.5-15) % Plt Count (150-450) 10^3/ul MPV (7.4-10.4) um3 Neut % (Auto) (38-83) % Lymph % (Auto) (25-47) % [place] % (Auto) (1-9) % Eos % (Auto) (0-6) % Baso % (Auto) (0-2) % Absolute Neuts (auto) (1.5-7.7) 10^3/ul Absolute Lymphs (auto) (1.0-4.8) 10^3/ul Absolute Monos (auto) (0-0.8) 10^3/ul Absolute Eos (auto) (0-0.6) 10^3/ul Absolute Basos (auto) (0-0.2) 10^3/ul Absolute Nucleated RBC 10^3/ul Nucleated RBC % INR (Anticoag Therapy) (0.89-1.11) Sodium (133-145) mmol/L Potassium (3.5-5.0) mmol/L Chloride (101-111) mmol/L Carbon Dioxide (22-32) mmol/L Anion Gap (2-11) mmol/L BUN (6-24) mg/dL Creatinine (0.67-1.17) mg/dL Est GFR ( Amer) (>60) Est GFR (Non-Af Amer) (>60) BUN/Creatinine Ratio (8-20) Glucose (70-100) mg/dL Lactic Acid 1.4 (0.5-2.0) mmol/L Calcium (8.6-10.3) mg/dL Total Bilirubin (0.2-1.0) mg/dL AST (13-39) U/L ALT (7-52) U/L Alkaline Phosphatase (34-104) U/L Troponin I (<0.04) ng/mL C-Reactive Protein (< 5.00) mg/L B-Natriuretic Peptide 252 H ( - 100) pg/mL Total Protein (6.4-8.9) g/dL Albumin (3.2-5.2) g/dL Globulin (2-4) g/dL Albumin/Globulin Ratio (1-3) Urine Color Yellow Urine Appearance Cloudy Urine pH 6.0 (5-9) Ur Specific [place] 1.017 (1.010-1.030) Urine Protein Negative (Negative) Urine Ketones Trace H (Negative) Urine Blood 1+ H (Negative) Urine Nitrate Positive H (Negative) Urine Bilirubin Negative (Negative) Urine Urobilinogen Negative (Negative) Ur Leukocyte Esterase 3+ H (Negative) Urine WBC (Auto) 3+(>20/hpf) H (Absent) Urine RBC (Auto) 3+(>10/hpf) H (Absent) Urine Bacteria 1+ H (Absent) Urine Glucose Negative (Negative) 11/22/16 Range/Units 18:09 WBC (3.5-10.8) 10^3/ul RBC (4.0-5.4) 10^6/ul Hgb (14.0-18.0) g/dl Hct (42-52) % MCV (80-94) fL MCH (27-31) pg MCHC (31-36) g/dl RDW (10.5-15) % Plt Count (150-450) 10^3/ul MPV (7.4-10.4) um3 Neut % (Auto) (38-83) % Lymph % (Auto) (25-47) % [place] % (Auto) (1-9) % Eos % (Auto) (0-6) % Baso % (Auto) (0-2) % Absolute Neuts (auto) (1.5-7.7) 10^3/ul Absolute Lymphs (auto) (1.0-4.8) 10^3/ul Absolute Monos (auto) (0-0.8) 10^3/ul Absolute Eos (auto) (0-0.6) 10^3/ul Absolute Basos (auto) (0-0.2) 10^3/ul Absolute Nucleated RBC 10^3/ul Nucleated RBC % INR (Anticoag Therapy) (0.89-1.11) Sodium (133-145) mmol/L Potassium (3.5-5.0) mmol/L Chloride (101-111) mmol/L Carbon Dioxide (22-32) mmol/L Anion Gap (2-11) mmol/L BUN (6-24) mg/dL Creatinine (0.67-1.17) mg/dL Est GFR ( Amer) (>60) Est GFR (Non-Af Amer) (>60) BUN/Creatinine Ratio (8-20) Glucose (70-100) mg/dL Lactic Acid 1.5 (0.5-2.0) mmol/L Calcium (8.6-10.3) mg/dL Total Bilirubin (0.2-1.0) mg/dL AST (13-39) U/L ALT (7-52) U/L Alkaline Phosphatase (34-104) U/L Troponin I (<0.04) ng/mL C-Reactive Protein (< 5.00) mg/L B-Natriuretic Peptide ( - 100) pg/mL Total Protein (6.4-8.9) g/dL Albumin (3.2-5.2) g/dL Globulin (2-4) g/dL Albumin/Globulin Ratio (1-3) Urine Color Urine Appearance Urine pH (5-9) Ur Specific [place] (1.010-1.030) Urine Protein (Negative) Urine Ketones (Negative) Urine Blood (Negative) Urine Nitrate (Negative) Urine Bilirubin (Negative) Urine Urobilinogen (Negative) Ur Leukocyte Esterase (Negative) Urine WBC (Auto) (Absent) Urine RBC (Auto) (Absent) Urine Bacteria (Absent) Urine Glucose (Negative) Assess/Plan/Problems-Billing Mr Elmore is a 76 yo M who has a h/o HTN, afib, hypothyroidism and HLD who presented to the ER with c/o rigors and dysuria. - Patient Problems (1) Gram negative sepsis Current Visit: Yes Status: Acute Comment: The patient is septic secondary to E coli UTI and bacteremia. WBC count has trended down, creatinine has improved, BP has improved slightly and HR has trended down some. ID consult today for guidance on Abx choice and duration of treatment. (2) UTI (urinary tract infection) Current Visit: Yes Status: Acute Comment: Continue ceftriaxone. The urine is growing [id number]. ID consult today. (3) HTN (hypertension) Current Visit: Yes Status: Acute Code(s): I10 - ESSENTIAL (PRIMARY) HYPERTENSION SNOMED Code(s): 95523807 Comment: BP has improved some but he is not consistently normotensive. Will continue to hold antihypertensives for now. Montior BP. Hold on further IVF hydration however as his O2 sats are low normal on 3L O2. (4) CHF (congestive heart failure) Current Visit: Yes Status: Acute Code(s): I50.9 - HEART FAILURE, UNSPECIFIED SNOMED Code(s): 27976443 Comment: The patient takes lasix at home. Last cardiac eval here was about 12 years ago and at that time he was found to have normal LV systolic function on catheterization. Will get echo today. He received aggressive IVF hydration yestesrday for his sepsis and now his O2 sats are down. Will hold off on lasix for now but if his pressures improve will give IV lasix x1. (5) Afib Current Visit: Yes Status: Acute Code(s): I48.91 - UNSPECIFIED ATRIAL FIBRILLATION SNOMED Code(s): 44418808 Comment: Pt's HR is currently uncontrolled but better than yesterday. Will continue to monitor for now but if his BP improves will restart low dose metoprolol. Continue amiodarone at home dose for now. Continue coumadin at home dose for both afib and h/o mechanical mitral valve. (6) Hypothyroid Current Visit: Yes Status: Acute Code(s): E03.9 - HYPOTHYROIDISM, UNSPECIFIED SNOMED Code(s): 49152792 Comment: TSH is in good range-continue home does of synthroid (7) DVT prophylaxis Current Visit: Yes Status: Acute Code(s): DJY4706 - SNOMED Code(s): 457620153 Comment: therapeutic INR (8) Full code status Current Visit: Yes Status: Acute Code(s): Z78.9 - OTHER SPECIFIED HEALTH STATUS SNOMED Code(s): 998600811
[2016-11-24] MEDS ORDERED: cefTRIAXone VIAL(*) 2,000 MG in NS 0.9% 50 ML* 50 ML IVPB SCH (11:15)
--- NOTE | 2016-11-24 11:59 | CONS ---
CONSULTATION REPORT: DATE OF CONSULT: 11/24/16 REQUESTING PHYSICIAN: Dr. Amaro. CONSULTING SERVICE: Infectious Disease. REASON FOR CONSULTATION: Sepsis. IMPRESSION: 1. Sepsis present on admission due to Escherichia coli urinary tract infection and bacteremia. 2. Escherichia coli urinary tract infection, differential includes prostatitis , acute, as well as stone disease. 3. Morbid obesity. 4. Acute kidney injury present on admission. 5. Atrial fibrillation. 6. Status post mechanical aortic valve replacement. RECOMMENDATIONS: 1. Ceftriaxone, but we will increase it to 2 g daily given his weight of 350 pounds. 2. Had an ultrasound of kidney and bladder to evaluate for stone disease given that he has had multiple urinary tract infections in the past. HISTORY OF PRESENT ILLNESS: This is a 76-year-old man with a mechanical aortic valve admitted with rigors, sweats, and low blood pressure, came to the hospital on the 2nd after developing symptoms. His blood pressure was in the high 90s and low 100s. He was febrile to 38.7. He was tachycardic to the 120s. He had acute kidney injury. He was started on ceftriaxone and IV fluids. He has had improvement and resolution of his shaking chills. He still had sweats last night. Had some pain with urination which is unusual for him. He denies nocturia or urinary frequency or difficulty initiating stream. He feels like he empties his bladder fully when he urinates. He has had 2 urinary tract infections over the last 4 years. No history of surgery or manipulation of the urinary tract. PAST MEDICAL HISTORY: 1. Status post mechanical aortic valve replacement. 2. Hypothyroidism. 3. Hyperlipidemia. 4. Hypertension. 5. Atrial fibrillation. 6. Morbid obesity. MEDICATIONS: 1. Tylenol. 2. Amiodarone. 3. Aspirin. 4. Lipitor. 5. Levothyroxine. 6. Metoprolol. 7. Ceftriaxone 1 g daily. 8. Warfarin. ALLERGIES: No known drug allergies. FAMILY HISTORY: No recurrent infections or tuberculosis. SOCIAL HISTORY: [place] He is [place]. He has no sick contacts. REVIEW OF SYSTEMS: Full review of systems was negative as noted above. PHYSICAL EXAM: Vital Signs: Temperature is 37.2, heart rate of 110, respiratory rate 20, blood pressure 126/62, O2 sat 91% on 2 liters. In general , he is awake in no distress. Neurologic: He is oriented x3. Follows all commands. HEENT: There is no conjunctival hemorrhage. Oropharynx without lesions. Lymph Nodes: There is no cervical, supraclavicular, inguinal, axillary or epitrochlear lymphadenopathy. Heart is regular and tachycardic without murmurs. Lungs are clear to auscultation bilaterally. Abdomen is soft , nontender, nondistended without hepatosplenomegaly. There is no flank tenderness or suprapubic tenderness to palpation. Skin: There is no rash or splinter hemorrhages. Musculoskeletal: There is no spine tenderness to palpation or joint synovitis. LABORATORY DATA: White blood cell count 7, hemoglobin 11; platelets 110, down from 130; creatinine is 1.0, down from 1.5. CRP was 5 on admission. Please see impressions and recommendations outlined above, which I have discussed with Dr. Amaro. Thanks for asking me to see Mr. Elmore in consultation. [id number]/[facility] #: [id number] MTDD
--- NOTE | 2016-11-24 13:09 | RAD ---
HISTORY: Urosepsis COMPARISONS: None TECHNIQUE: Multiple transverse and longitudinal ultrasound images were obtained of the kidneys and bladder using grayscale and color Doppler imaging. FINDINGS: The study is limited by patient body habitus. RIGHT KIDNEY: The right kidney is normal in shape, size, contour, and echogenicity. There is no hydronephrosis or nephrolithiasis. The right kidney measures 11.6 x 5.3 x 5.5 cm. LEFT KIDNEY: The left kidney is normal in shape, size, contour, and echogenicity. There is no hydronephrosis or nephrolithiasis. The left kidney measures 11.4 x 5.6 x 4.5 cm. BLADDER: The bladder is smooth in contour. Bilateral ureteral jets are identified. The prevoid bladder volume is 157 milliliters.. AORTA AND IVC: No images are submitted of the vasculature. RETROPERITONEUM: Unremarkable. OTHER: None. IMPRESSION: 1. NO HYDRONEPHROSIS OR NEPHROLITHIASIS. 2. BILATERAL URETERAL JETS ARE IDENTIFIED
[2016-11-24] MEDS: Warfarin TAB(*) 2.5 MG PO SCH (16:44)
--- NOTE | 2016-11-24 17:41 | ECHO ---
Patient: MEKA DAI [facility] Rec#: [id number] : 1940 Date: 11/24/2016 Age: 76y Weight: kg / NaN lbs Sex: M Room#: 435 Admit Date#: 11/22/2016 Type: Inpatient Referring: Gloria Amaro DO Reading: Greg Nelson MD Acidity Tester: Jessy Husain RN RDCS CC: Julio Freire MD Transthoracic Echocardiogram Indication: A. fib, bacteremia, CHF BP: 126/62 HR: 84 Rhythm: A-Fib Findings History: HTN, HLD, A. 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 The study was technically limited due to the patient's inability to lay in the left lateral decubitus position. Completed at 1645. Left Ventricle: The left ventricular chamber size is mildly dilated. Severe global hypokinesis of the left ventricle is observed. There is severely decreased left ventricular systolic function. The estimated ejection fraction is 20-25%. There is septal flattening of the interventricular septum consistent with right ventricular volume or pressure overload. The assessment of diastolic function is non-diagnostic. The basal anteroseptal, basal anterior, basal inferior, basal inferoseptal, mid anteroseptal, mid anterior, mid inferior, mid inferoseptal, apical septal, apical anterior, and apical inferior wall segments are hypokinetic (score 2). Overall wallmotion score index is 1.69 Left Atrium: The left atrium is moderately dilated. Right Ventricle: The right ventricle is mildly dilated. The right ventricular global systolic function is moderately reduced. Right Atrium: The right atrium is moderately dilated. Aortic Valve: The aortic valve structure is not well visualized. The aortic valve leaflets are mildly thickened. There is no evidence of aortic regurgitation. There is mild aortic stenosis. The mean gradient of the aortic valve is 7.4 mmHg. The peak instantaneous gradient of the aortic valve is 13.6 mmHg. The aortic valve area, by peak velocities, is calculated at 1.9 cm2. The aortic valve area, by VTI's, is calculated at 1.8 cm2. Mitral Valve: The mitral valve structure is not well visualized. There is no evidence of mitral regurgitation. There is moderate mitral stenosis. by mean gradient. A mechanical prosthetic mitral valve is present. The mechanical mitral valve appears stenotic. mildly stenotic by mean gradient. Tricuspid Valve: The tricuspid valve structure is not well visualized. There is moderate tricuspid regurgitation. There is evidence of moderate pulmonary hypertension. Pulmonic Valve: The pulmonic valve appears normal. There is mild pulmonic regurgitation. There is no pulmonic stenosis. Pericardium: There is no significant pericardial effusion. A pericardial fat pad is visualized. Aorta: There is no dilatation of the ascending aorta. The aortic arch is not well visualized. The aortic root is normal in size. Pulmonary Artery: The main pulmonary artery is not well visualized. Venous: The inferior vena cava is dilated. There is an approximate 50% respiratory change in the inferior vena cava dimension. Conclusions The study is technically limited due to patient body habitus. The left ventricular chamber size is mildly dilated. Severe global hypokinesis of the left ventricle is observed. There is severely decreased left ventricular systolic function. The estimated ejection fraction is 20-25%. There is septal flattening of the interventricular septum consistent with right ventricular volume or pressure overload. The left atrium is moderately dilated. The right ventricle is mildly dilated. The right ventricular global systolic function is moderately reduced. There is mild aortic stenosis. A mechanical prosthetic mitral valve is present. The mechanical mitral valve appears stenotic; mildly stenotic by mean gradient. There is moderate tricuspid regurgitation. There is evidence of moderate pulmonary hypertension. Prior ALPESH from 11/2003 was before MVR: there was normal LV function and severe MR. Measurements Name Value Normal Range RVIDd (AP) 2D 3.6 cm (0.9 - 2.6) RVDdMajor (2D) 4.2 cm (2.2 - 4.4) RAd ISD 4CH 6.2 cm (3.4 - 4.9) RA (A4C)W 4.9 cm (2.9 - 4.6) IVSd (2D) 1 cm (0.6 - 1) LVPWd (2D) 0.9 cm (0.6 - 1) LVIDd (2D) 5.6 cm (3.6 - 5.4) LVIDs (2D) 4.8 cm - LV FS (2D) 16 % (25 - 45) Aortic Annulus 2.6 cm (1.4 - 2.6) Ao root diameter (2D) 3.3 cm (2.1 - 3.5) Ascending Ao 3.3 cm (2.1 - 3.4) LA dimension (AP) 2D 5.4 cm (2.3 - 3.8) LAd ISD 4CH 6.4 cm (2.9 - 5.3) LA ISD 4CH W 4.8 cm (2.5 - 4.5) Name Value Normal Range MV E-wave Vmax 1.6 m/sec - MV deceleration time 262 msec - LV septal e' Vmax 0.09 m/sec - LV lateral e' Vmax 0.12 m/sec - LV E:e' septal ratio 17.8 ratio - LV E:e' lateral ratio 13.3 ratio - Name Value Normal Range AV Vmax 1.8 m/sec - AV VTI 33.6 cm - AV peak gradient 13.6 mmHg - AV mean gradient 7.4 mmHg - LVOT diameter 2 cm - LVOT Vmax 1.1 m/sec - LVOT VTI 19.5 cm - LVOT peak gradient 12.3 mmHg - LVOT mean gradient 2.6 mmHg - DOI (VTI) 0.58 ratio - DOI (Vmax) 0.6 ratio - SV LVOT 61 ml - RAVINDRA (continuity Vmax) 1.9 cm2 - RAVINDRA (continuity VTI) 1.8 cm2 - Name Value Normal Range MV Vmax 2.1 m/sec - MV VTI 37.9 cm - MV peak gradient 17.6 mmHg - MV mean gradient 6.2 mmHg - MV PHT 82 msec - MVA (PHT) 2.7 cm2 - MVA (continuity VTI) 1.6 cm2 - Name Value Normal Range TR Vmax 3 m/sec - TR peak gradient 36 mmHg - RAP 15 mmHg - RVSP 51 mmHg - IVC diameter 2.7 cm - Name Value Normal Range PV Vmax 1.2 m/sec - Wallmotion BAS Hypokinetic BA Hypokinetic BAL Normal DASIA Normal BI Hypokinetic BIS Hypokinetic MAS Hypokinetic MA Hypokinetic MAL Normal MIL Normal RI Hypokinetic MIS Hypokinetic Hypokinetic AA Hypokinetic AL Normal AI Hypokinetic APEX Hypokinetic
[2016-11-24] MEDS: Metoprolol Tartrate TAB* 50 mg PO SCH (17:42)
[2016-11-24] MEDS: Atorvastatin* 40 MG TAB PO SCH (20:41)
[2016-11-25] MEDS: Levothyroxine TAB* 125 MCG TAB PO SCH (06:14)
[2016-11-25 08:22] LABS: Hematocrit 35 % (42-52); Hemoglobin 11.7 g/dl (14.0-18.0); Mean Corpuscular HGB Conc 34 g/dl (31-36); Mean Corpuscular Hemoglobin 34 pg (27-31); Mean Corpuscular Volume 102 fL (80-94); Mean Platelet Volume 8 um3 (7.4-10.4); Red Blood Count 3.42 10^6/ul (4.0-5.4); Red Cell Distribution Width 15 % (10.5-15); White Blood Count 9.1 10^3/ul (3.5-10.8)
[2016-11-25 08:46] LABS: BUN/Creatinine Ratio 16.2 (8-20); Calcium 7.8 mg/dL (8.6-10.3); EGFR Non-African American 73.1 (>60); Potassium 4.4 mmol/L (3.5-5.0)
[2016-11-25] MEDS: Metoprolol Tartrate TAB* 25 MG PO SCH (09:13)
[2016-11-25] MEDS: Amiodarone TAB* 200 MG PO SCH (09:15)
[2016-11-25] MEDS: Aspirin EC Low Dose* 81 MG TAB.EC PO SCH (09:15)
[2016-11-25] MEDS ORDERED: Furosemide IV* 10 MG/ML VIAL (40 MG) IV SLOW PU ONE (11:55)
--- NOTE | 2016-11-25 12:15 | PN ---
Subjective Date of Service: 11/25/16 Interval History: Pt states he is feeling well. He denies any SOB despite appearing tachypnic at rest. He denies any pain. He has not been up and walking. Objective Active Medications: Acetaminophen (Tylenol Tab*) 650 mg PO Q4H PRN PRN Reason: FEVER/PAIN Last Admin: 11/23/16 15:40 Dose: 650 mg Amiodarone HCl (Cordarone Tab*) 200 mg PO DAILY [facility] Last Admin: 11/25/16 09:15 Dose: 200 mg Aspirin (Aspirin Ec Low Dose*) 81 mg PO DAILY [facility] Last Admin: 11/25/16 09:15 Dose: 81 mg Atorvastatin Calcium (Lipitor*) 40 mg PO BEDTIME [facility] Last Admin: 11/24/16 20:41 Dose: 40 mg Furosemide (Lasix Iv*) 40 mg IV SLOW PU ONCE ONE Stop: 11/25/16 11:56 Heparin Sodium (Porcine) (Heparin Flush Picc/Ml/Cvc(*)) 1 - 3 ml FLUSH 0600, 1800 [facility] PRN Reason: Protocol Last Admin: 11/25/16 06:13 Dose: 1 ml Ceftriaxone Sodium 2 gm/ (Sodium Chloride) 100 mls @ 200 mls/hr IVPB Q24H [facility] Last Admin: 11/25/16 11:45 Dose: 200 mls/hr Levothyroxine Sodium (Synthroid Tab*) 125 mcg PO 0600 [facility] Last Admin: 11/25/16 06:14 Dose: 125 mcg Metoprolol Tartrate (Lopressor Iv*) 5 mg IV Q6H PRN PRN Reason: HEART RATE/PULSE Metoprolol Tartrate (Lopressor Tab*) 50 mg PO QPM [facility] Last Admin: 11/24/16 17:42 Dose: 50 mg Metoprolol Tartrate (Lopressor Tab*) 25 mg PO QAM [facility] Last Admin: 11/25/16 09:13 Dose: Not Given Ondansetron HCl (Zofran Inj*) 4 mg IV Q6H PRN PRN Reason: NAUSEA Warfarin Sodium (Coumadin Tab(*)) 3.75 mg PO [id number]@1700 [facility] PRN Reason: Protocol Last Admin: 11/24/16 16:44 Dose: 3.75 mg Warfarin Sodium (Coumadin Tab(*)) 2.5 mg PO [email or web address]@1700 [facility] PRN Reason: Protocol Last Admin: 11/23/16 16:41 Dose: 2.5 mg Vital Signs 11/24/16 11/24/16 11/24/16 14:11 15:39 19:23 Temperature 99.1 F 99.1 F 100.0 F Pulse Rate 73 73 69 Respiratory 28 28 19 Rate Blood Pressure 142/73 142/73 105/62 (mmHg) O2 Sat by Pulse 94 95 94 Oximetry 11/24/16 11/24/16 11/25/16 20:00 23:18 00:00 Temperature 98.2 F Pulse Rate 77 Respiratory 18 24 Rate Blood Pressure 110/81 (mmHg) O2 Sat by Pulse 92 92 Oximetry 11/25/16 11/25/16 11/25/16 03:52 07:41 08:44 Temperature 98.9 F 98.7 F Pulse Rate 62 52 Respiratory 20 28 26 Rate Blood Pressure 133/85 77/52 (mmHg) O2 Sat by Pulse 95 95 96 Oximetry 11/25/16 08:48 Temperature Pulse Rate Respiratory Rate Blood Pressure 100/64 (mmHg) O2 Sat by Pulse Oximetry Oxygen Devices in Use Now: Nasal Cannula - 96%-3L Appearance: Elderly male sitting up in a chair, visually appearing to be tachypnic but in NAD Eyes: No Scleral Icterus Ears/Nose/Mouth/Throat: Mucous Membranes Moist Respiratory: Symmetrical Chest Expansion and Respiratory Effort, Clear to Auscultation - diminished breath sounds at the bases, forced expiratory wheeze noted Cardiovascular: NL Sounds; No Murmurs; No JVD, - - difficult to hear heart sounds over upper airway wheeze, 2+ B/L LE edema Abdominal: NL Sounds; No Tenderness; No Distention - obese Extremities: No Clubbing, Cyanosis Skin: No Rash or Ulcers, No Nodules or Sclerosis, - - chronic venous stasis changes to the B/L LE Neurological: Alert and Oriented x 3 Result Diagrams: 11/25/16 07:20 11/25/16 07:20 Additional Lab and Data: Lab Results 11/22/16 11/22/16 11/22/16 Range/Units 14:13 14:13 14:13 WBC 8.0 (3.5-10.8) 10^3/ul RBC 4.14 (4.0-5.4) 10^6/ul Hgb 13.8 L (14.0-18.0) g/dl Hct 42 (42-52) % MCV 102 H (80-94) fL MCH 33 H (27-31) pg MCHC 33 (31-36) g/dl RDW 16 H (10.5-15) % Plt Count 171 (150-450) 10^3/ul MPV 8 (7.4-10.4) um3 Neut % (Auto) 97.5 H (38-83) % Lymph % (Auto) 1.4 L (25-47) % [place] % (Auto) 0.4 L (1-9) % Eos % (Auto) 0.4 (0-6) % Baso % (Auto) 0.3 (0-2) % Absolute Neuts (auto) 7.8 H (1.5-7.7) 10^3/ul Absolute Lymphs (auto) 0.1 L (1.0-4.8) 10^3/ul Absolute Monos (auto) 0 (0-0.8) 10^3/ul Absolute Eos (auto) 0 (0-0.6) 10^3/ul Absolute Basos (auto) 0 (0-0.2) 10^3/ul Absolute Nucleated RBC 0.01 10^3/ul Nucleated RBC % 0.1 INR (Anticoag Therapy) 3.02 H (0.89-1.11) Sodium 137 (133-145) mmol/L Potassium 4.2 (3.5-5.0) mmol/L Chloride 99 L (101-111) mmol/L Carbon Dioxide 31 (22-32) mmol/L Anion Gap 7 (2-11) mmol/L BUN 24 (6-24) mg/dL Creatinine 1.43 H (0.67-1.17) mg/dL Est GFR ( Amer) 61.5 (>60) Est GFR (Non-Af Amer) 47.8 (>60) BUN/Creatinine Ratio 16.8 (8-20) Glucose 111 H (70-100) mg/dL Lactic Acid (0.5-2.0) mmol/L Calcium 8.8 (8.6-10.3) mg/dL Total Bilirubin 1.00 (0.2-1.0) mg/dL AST 18 (13-39) U/L ALT 13 (7-52) U/L Alkaline Phosphatase 58 (34-104) U/L Troponin I 0.01 (<0.04) ng/mL C-Reactive Protein 5.23 H (< 5.00) mg/L B-Natriuretic Peptide ( - 100) pg/mL Total Protein 7.0 (6.4-8.9) g/dL Albumin 3.7 (3.2-5.2) g/dL Globulin 3.3 (2-4) g/dL Albumin/Globulin Ratio 1.1 (1-3) Urine Color Urine Appearance Urine pH (5-9) Ur Specific [place] (1.010-1.030) Urine Protein (Negative) Urine Ketones (Negative) Urine Blood (Negative) Urine Nitrate (Negative) Urine Bilirubin (Negative) Urine Urobilinogen (Negative) Ur Leukocyte Esterase (Negative) Urine WBC (Auto) (Absent) Urine RBC (Auto) (Absent) Urine Bacteria (Absent) Urine Glucose (Negative) 11/22/16 11/22/16 11/22/16 Range/Units 14:13 14:13 15:43 WBC (3.5-10.8) 10^3/ul RBC (4.0-5.4) 10^6/ul Hgb (14.0-18.0) g/dl Hct (42-52) % MCV (80-94) fL MCH (27-31) pg MCHC (31-36) g/dl RDW (10.5-15) % Plt Count (150-450) 10^3/ul MPV (7.4-10.4) um3 Neut % (Auto) (38-83) % Lymph % (Auto) (25-47) % [place] % (Auto) (1-9) % Eos % (Auto) (0-6) % Baso % (Auto) (0-2) % Absolute Neuts (auto) (1.5-7.7) 10^3/ul Absolute Lymphs (auto) (1.0-4.8) 10^3/ul Absolute Monos (auto) (0-0.8) 10^3/ul Absolute Eos (auto) (0-0.6) 10^3/ul Absolute Basos (auto) (0-0.2) 10^3/ul Absolute Nucleated RBC 10^3/ul Nucleated RBC % INR (Anticoag Therapy) (0.89-1.11) Sodium (133-145) mmol/L Potassium (3.5-5.0) mmol/L Chloride (101-111) mmol/L Carbon Dioxide (22-32) mmol/L Anion Gap (2-11) mmol/L BUN (6-24) mg/dL Creatinine (0.67-1.17) mg/dL Est GFR ( Amer) (>60) Est GFR (Non-Af Amer) (>60) BUN/Creatinine Ratio (8-20) Glucose (70-100) mg/dL Lactic Acid 1.4 (0.5-2.0) mmol/L Calcium (8.6-10.3) mg/dL Total Bilirubin (0.2-1.0) mg/dL AST (13-39) U/L ALT (7-52) U/L Alkaline Phosphatase (34-104) U/L Troponin I (<0.04) ng/mL C-Reactive Protein (< 5.00) mg/L B-Natriuretic Peptide 252 H ( - 100) pg/mL Total Protein (6.4-8.9) g/dL Albumin (3.2-5.2) g/dL Globulin (2-4) g/dL Albumin/Globulin Ratio (1-3) Urine Color Yellow Urine Appearance Cloudy Urine pH 6.0 (5-9) Ur Specific [place] 1.017 (1.010-1.030) Urine Protein Negative (Negative) Urine Ketones Trace H (Negative) Urine Blood 1+ H (Negative) Urine Nitrate Positive H (Negative) Urine Bilirubin Negative (Negative) Urine Urobilinogen Negative (Negative) Ur Leukocyte Esterase 3+ H (Negative) Urine WBC (Auto) 3+(>20/hpf) H (Absent) Urine RBC (Auto) 3+(>10/hpf) H (Absent) Urine Bacteria 1+ H (Absent) Urine Glucose Negative (Negative) 11/22/16 Range/Units 18:09 WBC (3.5-10.8) 10^3/ul RBC (4.0-5.4) 10^6/ul Hgb (14.0-18.0) g/dl Hct (42-52) % MCV (80-94) fL MCH (27-31) pg MCHC (31-36) g/dl RDW (10.5-15) % Plt Count (150-450) 10^3/ul MPV (7.4-10.4) um3 Neut % (Auto) (38-83) % Lymph % (Auto) (25-47) % [place] % (Auto) (1-9) % Eos % (Auto) (0-6) % Baso % (Auto) (0-2) % Absolute Neuts (auto) (1.5-7.7) 10^3/ul Absolute Lymphs (auto) (1.0-4.8) 10^3/ul Absolute Monos (auto) (0-0.8) 10^3/ul Absolute Eos (auto) (0-0.6) 10^3/ul Absolute Basos (auto) (0-0.2) 10^3/ul Absolute Nucleated RBC 10^3/ul Nucleated RBC % INR (Anticoag Therapy) (0.89-1.11) Sodium (133-145) mmol/L Potassium (3.5-5.0) mmol/L Chloride (101-111) mmol/L Carbon Dioxide (22-32) mmol/L Anion Gap (2-11) mmol/L BUN (6-24) mg/dL Creatinine (0.67-1.17) mg/dL Est GFR ( Amer) (>60) Est GFR (Non-Af Amer) (>60) BUN/Creatinine Ratio (8-20) Glucose (70-100) mg/dL Lactic Acid 1.5 (0.5-2.0) mmol/L Calcium (8.6-10.3) mg/dL Total Bilirubin (0.2-1.0) mg/dL AST (13-39) U/L ALT (7-52) U/L Alkaline Phosphatase (34-104) U/L Troponin I (<0.04) ng/mL C-Reactive Protein (< 5.00) mg/L B-Natriuretic Peptide ( - 100) pg/mL Total Protein (6.4-8.9) g/dL Albumin (3.2-5.2) g/dL Globulin (2-4) g/dL Albumin/Globulin Ratio (1-3) Urine Color Urine Appearance Urine pH (5-9) Ur Specific [place] (1.010-1.030) Urine Protein (Negative) Urine Ketones (Negative) Urine Blood (Negative) Urine Nitrate (Negative) Urine Bilirubin (Negative) Urine Urobilinogen (Negative) Ur Leukocyte Esterase (Negative) Urine WBC (Auto) (Absent) Urine RBC (Auto) (Absent) Urine Bacteria (Absent) Urine Glucose (Negative) Assess/Plan/Problems-Billing Mr Elmore is a 76 yo M who has a h/o HTN, afib, hypothyroidism and HLD who presented to the ER with c/o rigors and dysuria. - Patient Problems (1) Acute systolic CHF (congestive heart failure) Current Visit: Yes Status: Acute Code(s): I50.21 - ACUTE SYSTOLIC ( CONGESTIVE) HEART FAILURE SNOMED Code(s): 398050207 Comment: The patient underwent echo yesterday that was technically difficult but revealed an EF of 20-25%. The patient does not think he has had any recent evaluation of his EF. He states he used to follow with Dr. Barron but not recently. Will try to get ahold of Dr. Freire to discuss his past cardiac care. If I am unable to reach him and based on the fact that the patient does not believe he has had any formal cardiac care recently will get cardiology eval. He likely needs an ischemic work up- catheterization in 2004 did not show any significant CAD. Will give lasix 40mg IV x1 now as he is tachypnic and his echo shows RV volume overload. (2) Gram negative sepsis Current Visit: Yes Status: Acute Comment: The patient remains on ceftriaxone for his sepsis secondary to the E coli UTI and bacteremia. WBC count has normalized, creatinine has improved. The patient underwent kidney/ bladder US yesterday that did not have any concerning findings. Will plan on treating the patient for a total of 1 days as if he has prostatitis. (3) UTI (urinary tract infection) Current Visit: Yes Status: Acute Comment: Continue ceftriaxone for now. Will treat as if the patient has prostatitis. (4) HTN (hypertension) Current Visit: Yes Status: Acute Code(s): I10 - ESSENTIAL (PRIMARY) HYPERTENSION SNOMED Code(s): 32591503 Comment: The patient's BP is improved though still not at the point where I feel comfortable giving his usual dose of metoprolol for HR control. If his BP stabilizes he will be restarted on his home doses of metoprolol. (5) Afib Current Visit: Yes Status: Acute Code(s): I48.91 - UNSPECIFIED ATRIAL FIBRILLATION SNOMED Code(s): 16607325 Comment: Pt's HR is under better control but better than it has been. Will continue current dose of amiodarone and add back metoprolol if BP improves further. INR is therapeutic. Continue current dose of coumadin. (6) Thrombocytopenia Current Visit: Yes Status: Acute Code(s): D69.6 - THROMBOCYTOPENIA, UNSPECIFIED SNOMED Code(s): 331777156 Comment: I suspect the patient's thrombocytopenia was secondary to sepsis. His plt count is improving. (7) Hypothyroid Current Visit: Yes Status: Acute Code(s): E03.9 - HYPOTHYROIDISM, UNSPECIFIED SNOMED Code(s): 42000351 Comment: TSH is in good range-continue home does of synthroid (8) DVT prophylaxis Current Visit: Yes Status: Acute Code(s): CLA8525 - SNOMED Code(s): 091841751 Comment: therapeutic INR (9) Full code status Current Visit: Yes Status: Acute Code(s): Z78.9 - OTHER SPECIFIED HEALTH STATUS SNOMED Code(s): 728837497
[2016-11-25] MEDS: Warfarin TAB(*) 2.5 MG PO SCH (18:06)
[2016-11-25] MEDS: Metoprolol Tartrate TAB* 50 mg PO SCH (18:16)
[2016-11-25] MEDS: Atorvastatin* 40 MG TAB PO SCH (19:53)
[2016-11-26] MEDS: Levothyroxine TAB* 125 MCG TAB PO SCH (05:25)
[2016-11-26 06:12] LABS: BUN/Creatinine Ratio 18.6 (8-20); Calcium 8.4 mg/dL (8.6-10.3); EGFR African American 96.3 (>60); EGFR Non-African American 74.9 (>60); Magnesium 1.9 mg/dL (1.9-2.7); Potassium 4.2 mmol/L (3.5-5.0)
[2016-11-26] MEDS: Aspirin EC Low Dose* 81 MG TAB.EC PO SCH (09:05)
[2016-11-26] MEDS: Amiodarone TAB* 200 MG PO SCH (09:05)
[2016-11-26] MEDS: Metoprolol Tartrate TAB* 25 MG PO SCH (09:05)
[2016-11-26] MEDS ORDERED: Furosemide IV* 10 MG/ML VIAL (40 MG) IV SLOW PU ONE (10:03)
--- NOTE | 2016-11-26 10:11 | PN ---
Subjective Date of Service: 11/26/16 Interval History: Pt states he is feeling well. He states his breathing was quite labored when he got out of bed this AM but he states that is usual. He feels that his breathing is at baseline now. Objective Active Medications: Acetaminophen (Tylenol Tab*) 650 mg PO Q4H PRN PRN Reason: FEVER/PAIN Last Admin: 11/23/16 15:40 Dose: 650 mg Amiodarone HCl (Cordarone Tab*) 200 mg PO DAILY [facility] Last Admin: 11/26/16 09:05 Dose: 200 mg Aspirin (Aspirin Ec Low Dose*) 81 mg PO DAILY [facility] Last Admin: 11/26/16 09:05 Dose: 81 mg Atorvastatin Calcium (Lipitor*) 40 mg PO BEDTIME [facility] Last Admin: 11/25/16 19:53 Dose: 40 mg Furosemide (Lasix Iv*) 40 mg IV SLOW PU ONCE ONE Stop: 11/26/16 10:04 Heparin Sodium (Porcine) (Heparin Flush Picc/Ml/Cvc(*)) 1 - 3 ml FLUSH 0600, 1800 [facility] PRN Reason: Protocol Last Admin: 11/26/16 05:29 Dose: 2 ml Ceftriaxone Sodium 2 gm/ (Sodium Chloride) 100 mls @ 200 mls/hr IVPB Q24H [facility] Last Admin: 11/25/16 11:45 Dose: 200 mls/hr Levothyroxine Sodium (Synthroid Tab*) 125 mcg PO 0600 [facility] Last Admin: 11/26/16 05:25 Dose: 125 mcg Metoprolol Tartrate (Lopressor Iv*) 5 mg IV Q6H PRN PRN Reason: HEART RATE/PULSE Metoprolol Tartrate (Lopressor Tab*) 50 mg PO QPM [facility] Last Admin: 11/25/16 18:16 Dose: Not Given Metoprolol Tartrate (Lopressor Tab*) 25 mg PO QAM [facility] Last Admin: 11/26/16 09:05 Dose: 25 mg Ondansetron HCl (Zofran Inj*) 4 mg IV Q6H PRN PRN Reason: NAUSEA Warfarin Sodium (Coumadin Tab(*)) 3.75 mg PO SuTuThSa@1700 [facility] PRN Reason: Protocol Last Admin: 11/24/16 16:44 Dose: 3.75 mg Warfarin Sodium (Coumadin Tab(*)) 2.5 mg PO MoWeFr@1700 [facility] PRN Reason: Protocol Last Admin: 11/25/16 18:06 Dose: 2.5 mg Vital Signs 11/25/16 11/25/16 11/25/16 11:36 15:24 15:51 Temperature 98.4 F 98.8 F Pulse Rate 34 52 Respiratory 18 24 Rate Blood Pressure 111/60 98/64 (mmHg) O2 Sat by Pulse 96 92 Oximetry 11/25/16 11/25/16 11/25/16 18:04 18:10 19:47 Temperature 98.1 F Pulse Rate 107 93 Respiratory 24 Rate Blood Pressure 110/40 85/55 (mmHg) O2 Sat by Pulse 97 Oximetry 11/25/16 11/26/16 11/26/16 20:00 00:22 03:22 Temperature 98.0 F 97.8 F Pulse Rate 96 67 39 Respiratory 24 24 20 Rate Blood Pressure 92/63 110/65 124/90 (mmHg) O2 Sat by Pulse 97 94 92 Oximetry 11/26/16 11/26/16 11/26/16 04:20 08:00 08:24 Temperature Pulse Rate 67 Respiratory 18 Rate Blood Pressure (mmHg) O2 Sat by Pulse 92 Oximetry 11/26/16 09:00 Temperature Pulse Rate Respiratory Rate Blood Pressure 109/58 (mmHg) O2 Sat by Pulse Oximetry Oxygen Devices in Use Now: Nasal Cannula - 2L-92% Appearance: Elderly obese male sitting in a chair, NAD Eyes: No Scleral Icterus Ears/Nose/Mouth/Throat: Mucous Membranes Moist Respiratory: Symmetrical Chest Expansion and Respiratory Effort, Clear to Auscultation Cardiovascular: NL Sounds; No Murmurs; No JVD, - - irregularly irregular, mildly tachycardic, 2+ B/L LE edema Abdominal: NL Sounds; No Tenderness; No Distention Extremities: No Clubbing, Cyanosis Skin: No Nodules or Sclerosis Neurological: Alert and Oriented x 3 Result Diagrams: 11/25/16 07:20 11/26/16 05:40 Additional Lab and Data: Lab Results 11/22/16 11/22/16 11/22/16 Range/Units 14:13 14:13 14:13 WBC 8.0 (3.5-10.8) 10^3/ul RBC 4.14 (4.0-5.4) 10^6/ul Hgb 13.8 L (14.0-18.0) g/dl Hct 42 (42-52) % MCV 102 H (80-94) fL MCH 33 H (27-31) pg MCHC 33 (31-36) g/dl RDW 16 H (10.5-15) % Plt Count 171 (150-450) 10^3/ul MPV 8 (7.4-10.4) um3 Neut % (Auto) 97.5 H (38-83) % Lymph % (Auto) 1.4 L (25-47) % Yancey % (Auto) 0.4 L (1-9) % Eos % (Auto) 0.4 (0-6) % Baso % (Auto) 0.3 (0-2) % Absolute Neuts (auto) 7.8 H (1.5-7.7) 10^3/ul Absolute Lymphs (auto) 0.1 L (1.0-4.8) 10^3/ul Absolute Monos (auto) 0 (0-0.8) 10^3/ul Absolute Eos (auto) 0 (0-0.6) 10^3/ul Absolute Basos (auto) 0 (0-0.2) 10^3/ul Absolute Nucleated RBC 0.01 10^3/ul Nucleated RBC % 0.1 INR (Anticoag Therapy) 3.02 H (0.89-1.11) Sodium 137 (133-145) mmol/L Potassium 4.2 (3.5-5.0) mmol/L Chloride 99 L (101-111) mmol/L Carbon Dioxide 31 (22-32) mmol/L Anion Gap 7 (2-11) mmol/L BUN 24 (6-24) mg/dL Creatinine 1.43 H (0.67-1.17) mg/dL Est GFR ( Amer) 61.5 (>60) Est GFR (Non-Af Amer) 47.8 (>60) BUN/Creatinine Ratio 16.8 (8-20) Glucose 111 H (70-100) mg/dL Lactic Acid (0.5-2.0) mmol/L Calcium 8.8 (8.6-10.3) mg/dL Total Bilirubin 1.00 (0.2-1.0) mg/dL AST 18 (13-39) U/L ALT 13 (7-52) U/L Alkaline Phosphatase 58 (34-104) U/L Troponin I 0.01 (<0.04) ng/mL C-Reactive Protein 5.23 H (< 5.00) mg/L B-Natriuretic Peptide ( - 100) pg/mL Total Protein 7.0 (6.4-8.9) g/dL Albumin 3.7 (3.2-5.2) g/dL Globulin 3.3 (2-4) g/dL Albumin/Globulin Ratio 1.1 (1-3) Urine Color Urine Appearance Urine pH (5-9) Ur Specific [place] (1.010-1.030) Urine Protein (Negative) Urine Ketones (Negative) Urine Blood (Negative) Urine Nitrate (Negative) Urine Bilirubin (Negative) Urine Urobilinogen (Negative) Ur Leukocyte Esterase (Negative) Urine WBC (Auto) (Absent) Urine RBC (Auto) (Absent) Urine Bacteria (Absent) Urine Glucose (Negative) 11/22/16 11/22/16 11/22/16 Range/Units 14:13 14:13 15:43 WBC (3.5-10.8) 10^3/ul RBC (4.0-5.4) 10^6/ul Hgb (14.0-18.0) g/dl Hct (42-52) % MCV (80-94) fL MCH (27-31) pg MCHC (31-36) g/dl RDW (10.5-15) % Plt Count (150-450) 10^3/ul MPV (7.4-10.4) um3 Neut % (Auto) (38-83) % Lymph % (Auto) (25-47) % Yancey % (Auto) (1-9) % Eos % (Auto) (0-6) % Baso % (Auto) (0-2) % Absolute Neuts (auto) (1.5-7.7) 10^3/ul Absolute Lymphs (auto) (1.0-4.8) 10^3/ul Absolute Monos (auto) (0-0.8) 10^3/ul Absolute Eos (auto) (0-0.6) 10^3/ul Absolute Basos (auto) (0-0.2) 10^3/ul Absolute Nucleated RBC 10^3/ul Nucleated RBC % INR (Anticoag Therapy) (0.89-1.11) Sodium (133-145) mmol/L Potassium (3.5-5.0) mmol/L Chloride (101-111) mmol/L Carbon Dioxide (22-32) mmol/L Anion Gap (2-11) mmol/L BUN (6-24) mg/dL Creatinine (0.67-1.17) mg/dL Est GFR ( Amer) (>60) Est GFR (Non-Af Amer) (>60) BUN/Creatinine Ratio (8-20) Glucose (70-100) mg/dL Lactic Acid 1.4 (0.5-2.0) mmol/L Calcium (8.6-10.3) mg/dL Total Bilirubin (0.2-1.0) mg/dL AST (13-39) U/L ALT (7-52) U/L Alkaline Phosphatase (34-104) U/L Troponin I (<0.04) ng/mL C-Reactive Protein (< 5.00) mg/L B-Natriuretic Peptide 252 H ( - 100) pg/mL Total Protein (6.4-8.9) g/dL Albumin (3.2-5.2) g/dL Globulin (2-4) g/dL Albumin/Globulin Ratio (1-3) Urine Color Yellow Urine Appearance Cloudy Urine pH 6.0 (5-9) Ur Specific [place] 1.017 (1.010-1.030) Urine Protein Negative (Negative) Urine Ketones Trace H (Negative) Urine Blood 1+ H (Negative) Urine Nitrate Positive H (Negative) Urine Bilirubin Negative (Negative) Urine Urobilinogen Negative (Negative) Ur Leukocyte Esterase 3+ H (Negative) Urine WBC (Auto) 3+(>20/hpf) H (Absent) Urine RBC (Auto) 3+(>10/hpf) H (Absent) Urine Bacteria 1+ H (Absent) Urine Glucose Negative (Negative) 11/22/16 Range/Units 18:09 WBC (3.5-10.8) 10^3/ul RBC (4.0-5.4) 10^6/ul Hgb (14.0-18.0) g/dl Hct (42-52) % MCV (80-94) fL MCH (27-31) pg MCHC (31-36) g/dl RDW (10.5-15) % Plt Count (150-450) 10^3/ul MPV (7.4-10.4) um3 Neut % (Auto) (38-83) % Lymph % (Auto) (25-47) % Yancey % (Auto) (1-9) % Eos % (Auto) (0-6) % Baso % (Auto) (0-2) % Absolute Neuts (auto) (1.5-7.7) 10^3/ul Absolute Lymphs (auto) (1.0-4.8) 10^3/ul Absolute Monos (auto) (0-0.8) 10^3/ul Absolute Eos (auto) (0-0.6) 10^3/ul Absolute Basos (auto) (0-0.2) 10^3/ul Absolute Nucleated RBC 10^3/ul Nucleated RBC % INR (Anticoag Therapy) (0.89-1.11) Sodium (133-145) mmol/L Potassium (3.5-5.0) mmol/L Chloride (101-111) mmol/L Carbon Dioxide (22-32) mmol/L Anion Gap (2-11) mmol/L BUN (6-24) mg/dL Creatinine (0.67-1.17) mg/dL Est GFR ( Amer) (>60) Est GFR (Non-Af Amer) (>60) BUN/Creatinine Ratio (8-20) Glucose (70-100) mg/dL Lactic Acid 1.5 (0.5-2.0) mmol/L Calcium (8.6-10.3) mg/dL Total Bilirubin (0.2-1.0) mg/dL AST (13-39) U/L ALT (7-52) U/L Alkaline Phosphatase (34-104) U/L Troponin I (<0.04) ng/mL C-Reactive Protein (< 5.00) mg/L B-Natriuretic Peptide ( - 100) pg/mL Total Protein (6.4-8.9) g/dL Albumin (3.2-5.2) g/dL Globulin (2-4) g/dL Albumin/Globulin Ratio (1-3) Urine Color Urine Appearance Urine pH (5-9) Ur Specific [place] (1.010-1.030) Urine Protein (Negative) Urine Ketones (Negative) Urine Blood (Negative) Urine Nitrate (Negative) Urine Bilirubin (Negative) Urine Urobilinogen (Negative) Ur Leukocyte Esterase (Negative) Urine WBC (Auto) (Absent) Urine RBC (Auto) (Absent) Urine Bacteria (Absent) Urine Glucose (Negative) Assess/Plan/Problems-Billing Mr Elmore is a 76 yo M who has a h/o HTN, afib, hypothyroidism and HLD who presented to the ER with c/o rigors and dysuria. - Patient Problems (1) Acute systolic CHF (congestive heart failure) Current Visit: Yes Status: Acute Code(s): I50.21 - ACUTE SYSTOLIC ( CONGESTIVE) HEART FAILURE SNOMED Code(s): 252494430 Comment: Cardiology consult pending. Will give lasix 40mg IV x1 again today. He will likely need an ischemic work up but his reduced EF could also be tachycardia induced CM. Will try to get HR under more optimal control. Await for recommendations from Dr. Nelson. (2) Gram negative sepsis Current Visit: Yes Status: Acute Comment: The patient remains on ceftriaxone for his sepsis secondary to the E coli UTI and bacteremia. The patient is on D# 4/ of treatment. (3) UTI (urinary tract infection) Current Visit: Yes Status: Acute Comment: Continue ceftriaxone for now. Will treat as if the patient has prostatitis. (4) HTN (hypertension) Current Visit: Yes Status: Acute Code(s): I10 - ESSENTIAL (PRIMARY) HYPERTENSION SNOMED Code(s): 68252015 Comment: BP is low normal-continue to monitor while on home dose of metoprolol. (5) Afib Current Visit: Yes Status: Acute Code(s): I48.91 - UNSPECIFIED ATRIAL FIBRILLATION SNOMED Code(s): 13853118 Comment: HR in general has been in the low 100's. ? if he has been persistently tachycardic leading to his reduced EF. Continue metoprolol and amiodarone. Await further recommendations from Dr. Nelson. Continue current dose of coumadin as his INR has been therapeutic. (6) Thrombocytopenia Current Visit: Yes Status: Acute Code(s): D69.6 - THROMBOCYTOPENIA, UNSPECIFIED SNOMED Code(s): 386356588 Comment: I suspect the patient's thrombocytopenia was secondary to sepsis. His plt count is improving. Recheck tomorrow. (7) Hypothyroid Current Visit: Yes Status: Acute Code(s): E03.9 - HYPOTHYROIDISM, UNSPECIFIED SNOMED Code(s): 40992012 Comment: TSH is in good range-continue home does of synthroid (8) DVT prophylaxis Current Visit: Yes Status: Acute Code(s): LQX2432 - SNOMED Code(s): 213946011 Comment: therapeutic INR (9) Full code status Current Visit: Yes Status: Acute Code(s): Z78.9 - OTHER SPECIFIED HEALTH STATUS SNOMED Code(s): 670640178
[2016-11-26] MEDS ORDERED: Digoxin IV* 0.5 MG/2 ML AMP (0.25 MG/ML) IV SLOW PU ONE (13:48)
[2016-11-26] MEDS: Warfarin TAB(*) 2.5 MG PO SCH (16:42)
[2016-11-26] MEDS: Metoprolol Tartrate TAB* 50 mg PO SCH (17:55)
[2016-11-26] MEDS: Atorvastatin* 40 MG TAB PO SCH (22:25)
--- NOTE | 2016-11-27 02:01 | CONS ---
CARDIOLOGY CONSULTATION: DATE OF CONSULT: 11/26/16 PATIENT OF: Dr. Freire, Dr. Barron, and Dr. Wren. CONSULTING PHYSICIAN: Gloria Amaro DO REASON FOR EVALUATION: Cardiomyopathy, mitral valve replacement, and rapid AFib. HISTORY OF PRESENT ILLNESS: Mr. Elmore is a very pleasant 76-year-old gentleman who has a history of MR, status post mitral valve replacement in approximately 2004. At that time, he had a cath on 11/09/04, which revealed no significant coronary disease. He had 4+ MR, normal LV function. He also had an echocardiogram on 12/01/03 with a ALPESH. Unfortunately, I only have one page of the report. 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 He apparently had prosthetic valve placed and was followed by Dr. Barron and Dr. Freire. The patient reports that he was lost to follow up with Dr. Barron's office due to failing to schedule a followup appointment, but had intended to followup. He says that he has been told of severe LV dysfunction in the past and atrial fibrillation. He apparently has been on amiodarone and says that he thinks that he is in and out of atrial fibrillation. He thinks he feels more fatigued when he is in atrial fibrillation, but he is not quite sure. He says he is limited by knee discomfort and uses a cane to walk short distances. He is able to walk from the parking lot to the mall, but has to stop and rest when he gets there. He does not think that has changed much in the last couple of years, but he thinks he has been more limited by his knees. 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 An ambulance was called and he was brought to the emergency room. He was found to be in atrial fibrillation with rapid ventricular response and diagnosed with an UTI. He had low blood pressures requiring holding his rate control medicines and subsequently developed faster heart rates and IV fluids to maintain his blood pressure. He has been seen by ID and treated with antibiotics and he has been improving; however, he continues to be in AFib with an elevated ventricular response and an echocardiogram was obtained that was performed on 11/24/16 and revealed an EF of 20% to 25%, septal flattening of the interventricular septum consistent with RV pressure, volume overload, moderate left atrial enlargement, RV mildly dilated, RV systolic function moderately reduced, mild aortic stenosis, mechanical prosthetic valve is present. It appears mildly stenotic by mean gradient, moderate TR, moderate pulmonary hypertension. 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 There was normal LV function and severe MR at that time. His PA pressure was estimated at 51 mmHg and a mean gradient across the valve was 6.2 mmHg. He denies orthopnea and he has had increased peripheral edema during this hospitalization, but normally he has dependent edema. Denies any chest pain or syncope. He denies any dysuria, hematemesis, or hematochezia. No strokes or mini strokes. PAST MEDICAL HISTORY: Includes hyperlipidemia, hypertension, paroxysmal atrial fibrillation, although it is not clear to me whether he has been in chronic AFib of late, hypothyroidism, morbid obesity. He has sleep apnea, but is noncompliant with treatment. ALLERGIES: He has no known allergies. FAMILY HISTORY: His mother lived to [facility]. Father of cancer at a younger age. SOCIAL HISTORY: He is . He used to live with his daughter, but she as well, that was his only child. He has no siblings. He does not smoke. He has only rare alcohol. He drinks 1 or 2 cups of coffee a day. 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 REVIEW OF SYSTEMS: Review of systems x10 was negative except as above. PHYSICAL EXAM: He is a well-developed, morbidly obese gentleman. Mildly short of breath with exertion and speaking for prolonged periods of times. Weight 347 pounds. I's and O's: He was positive 1800 on 11/23/16, 5400 on 11/24/16, and approximately 1000 on 11/25/16, was negative 683 today and is still urinating. Atraumatic, normocephalic. Extraocular muscles intact. Sclerae anicteric. Neck veins difficult to evaluate. Carotids 2+ without bruits. No cervical adenopathy or thyromegaly. Cardiac Exam: S1, S2 with a 2/6 systolic ejection murmur at the base and somewhat blunted prosthetic valve sounds. Chest revealed bibasilar rales, right greater than left. Abdomen: Obese. Exam limited due to obesity. Femoral pulse intact without bruits. There were chronic venous stasis changes and erythema of his lower extremities. 1+ edema on the right and 2+ on the left and motor strength is 5/5 bilaterally. Deep tendon reflexes 2/4. Alert and oriented x3. DIAGNOSTIC STUDIES/LAB DATA: EKG revealed atrial fibrillation with an elevated ventricular response of 105, nonspecific ST-T changes, poor R-wave progression, and possible anteroseptal VA. Chest x-ray by report from 11/23/16 revealed a PICC catheter in the right subclavian vein. The echo was as mentioned. Labs included white count of 9.1 from yesterday, down from 14.4 on 11/23/16, hematocrit 35, MCV elevated at 102, platelet count low at 114. Sodium 134, potassium 4.2, BUN 18, creatinine of 0.97, down from 1.45 on admission, mag of 1.9, calcium of 8.4. BNP was 252 on 11/22/16. INR is 2.86. Urine was positive for nitrite. Urine culture positive for E. coli. One blood culture positive for E. coli. IMPRESSION: Mr. 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 He also has atrial fibrillation with a poor control of ventricular rate. Certainly, his heart failure could be exacerbated by volume loading during his sepsis as well as LV dysfunction, valvular dysfunction, and tachycardia. I discussed the case with him and with Dr. Amaro and recommend the followin. Would try to restore rate control using beta-oralia and consider adding digoxin as needed to control his heart rate without excessively lowering his blood pressure. 2. I would continue gentle diuresis as you are doing. 3. Would consider repeat evaluation on amiodarone including PFTs and with DLCO and thyroid function tests. 4. Would consider obtaining a transesophageal echo to better define his valvular function. 5. Would consider a regimen for heart failure, perhaps adding Aldactone as well as MICHAEL inhibitor for his LV dysfunction. 6. I have tried to locate old records and requested old records from Dr. Barron' s care to see if indeed his LV dysfunction was present last evaluation. 7. Would continue anticoagulation as you are doing. 8. His obesity certainly increases his risk for morbidity and mortality. I Suggest weight reduction. He had been on Zocor as an outpatient in the past and was switched to Lipitor to avoid toxicity and interactions with amiodarone and warfarin. I think that is a reasonable choice and would continue with the atorvastatin. If he has recurrent fevers without an obvious source, consider ALPESH to evaluate for cardiac source of infection. [id number]/[facility] #: [id number] [facility]ITAL[facility]
[2016-11-27] MEDS: Levothyroxine TAB* 125 MCG TAB PO SCH (05:34)
[2016-11-27 06:04] LABS: Hematocrit 33 % (42-52); Hemoglobin 11.2 g/dl (14.0-18.0); Mean Corpuscular HGB Conc 34 g/dl (31-36); Mean Corpuscular Hemoglobin 34 pg (27-31); Mean Corpuscular Volume 100 fL (80-94); Mean Platelet Volume 8 um3 (7.4-10.4); Red Blood Count 3.32 10^6/ul (4.0-5.4); Red Cell Distribution Width 16 % (10.5-15); White Blood Count 6.4 10^3/ul (3.5-10.8)
[2016-11-27 06:28] LABS: BUN/Creatinine Ratio 23.3 (8-20); Calcium 8.3 mg/dL (8.6-10.3); EGFR Non-African American 81.6 (>60); Potassium 3.9 mmol/L (3.5-5.0)
[2016-11-27] MEDS ORDERED: Digoxin IV* 0.5 MG/2 ML AMP (0.25 MG/ML) IV SLOW PU ONE (08:49)
--- NOTE | 2016-11-27 09:15 | PN ---
Subjective Date of Service: 11/27/16 Interval History: Pt is feeling well. He denies any more SOB than baseline. He states he walked in the [place] yesterday and did feel tired after but states he thinks he would be tired if he walked that amount previously. He denies any pain. Objective Active Medications: Acetaminophen (Tylenol Tab*) 650 mg PO Q4H PRN PRN Reason: FEVER/PAIN Last Admin: 11/23/16 15:40 Dose: 650 mg Amiodarone HCl (Cordarone Tab*) 200 mg PO DAILY [facility] Last Admin: 11/26/16 09:05 Dose: 200 mg Aspirin (Aspirin Ec Low Dose*) 81 mg PO DAILY [facility] Last Admin: 11/26/16 09:05 Dose: 81 mg Atorvastatin Calcium (Lipitor*) 40 mg PO BEDTIME [facility] Last Admin: 11/26/16 22:25 Dose: 40 mg Digoxin (Digoxin Iv*) 0.25 mg IV SLOW PU ONCE ONE Stop: 11/27/16 08:50 Furosemide (Lasix Tab*) 40 mg PO DAILY [facility] Heparin Sodium (Porcine) (Heparin Flush Picc/Ml/Cvc(*)) 1 - 3 ml FLUSH 0600, 1800 [facility] PRN Reason: Protocol Last Admin: 11/27/16 05:36 Dose: 2 ml Ceftriaxone Sodium 2 gm/ (Sodium Chloride) 100 mls @ 200 mls/hr IVPB Q24H [facility] Last Admin: 11/26/16 11:07 Dose: 200 mls/hr Levothyroxine Sodium (Synthroid Tab*) 125 mcg PO 0600 [facility] Last Admin: 11/27/16 05:34 Dose: 125 mcg Metoprolol Tartrate (Lopressor Tab*) 50 mg PO QPM [facility] Last Admin: 11/26/16 17:55 Dose: 50 mg Metoprolol Tartrate (Lopressor Tab*) 25 mg PO QAM [facility] Last Admin: 11/26/16 09:05 Dose: 25 mg Ondansetron HCl (Zofran Inj*) 4 mg IV Q6H PRN PRN Reason: NAUSEA Warfarin Sodium (Coumadin Tab(*)) 3 mg PO ONCE@1700 ONE PRN Reason: Protocol Stop: 11/27/16 17:01 Vital Signs 11/26/16 11/26/16 11/26/16 11:51 14:25 15:27 Temperature 97.9 F Pulse Rate 73 98 Respiratory 18 20 Rate Blood Pressure 115/68 (mmHg) O2 Sat by Pulse 97 Oximetry 11/26/16 11/26/16 11/26/16 16:13 16:14 16:15 Temperature 98.2 F Pulse Rate 54 110 Respiratory 20 Rate Blood Pressure 103/63 (mmHg) O2 Sat by Pulse 93 96 Oximetry 11/26/16 11/26/16 11/27/16 20:00 20:18 00:24 Temperature 98.1 F 97.5 F Pulse Rate 96 109 Respiratory 18 18 20 Rate Blood Pressure 112/74 86/42 (mmHg) O2 Sat by Pulse 96 96 98 Oximetry 11/27/16 11/27/16 11/27/16 01:06 02:59 04:25 Temperature 97.6 F Pulse Rate 75 102 Respiratory 20 Rate Blood Pressure 105/62 104/48 (mmHg) O2 Sat by Pulse 94 97 Oximetry 11/27/16 07:28 Temperature 99.2 F Pulse Rate 64 Respiratory 18 Rate Blood Pressure 108/62 (mmHg) O2 Sat by Pulse 96 Oximetry Oxygen Devices in Use Now: Nasal Cannula - 2L-96% Appearance: Elderly male sitting up in bed, NAD Eyes: No Scleral Icterus Ears/Nose/Mouth/Throat: Mucous Membranes Moist Respiratory: Symmetrical Chest Expansion and Respiratory Effort, Clear to Auscultation Cardiovascular: NL Sounds; No Murmurs; No JVD, - - irregularly irregular, controlled rate, 2+ LE edema Abdominal: NL Sounds; No Tenderness; No Distention Extremities: No Clubbing, Cyanosis Skin: No Rash or Ulcers, No Nodules or Sclerosis Neurological: Alert and Oriented x 3 Result Diagrams: 11/27/16 05:50 11/27/16 05:50 Additional Lab and Data: Lab Results 11/22/16 11/22/16 11/22/16 Range/Units 14:13 14:13 14:13 WBC 8.0 (3.5-10.8) 10^3/ul RBC 4.14 (4.0-5.4) 10^6/ul Hgb 13.8 L (14.0-18.0) g/dl Hct 42 (42-52) % MCV 102 H (80-94) fL MCH 33 H (27-31) pg MCHC 33 (31-36) g/dl RDW 16 H (10.5-15) % Plt Count 171 (150-450) 10^3/ul MPV 8 (7.4-10.4) um3 Neut % (Auto) 97.5 H (38-83) % Lymph % (Auto) 1.4 L (25-47) % [place] % (Auto) 0.4 L (1-9) % Eos % (Auto) 0.4 (0-6) % Baso % (Auto) 0.3 (0-2) % Absolute Neuts (auto) 7.8 H (1.5-7.7) 10^3/ul Absolute Lymphs (auto) 0.1 L (1.0-4.8) 10^3/ul Absolute Monos (auto) 0 (0-0.8) 10^3/ul Absolute Eos (auto) 0 (0-0.6) 10^3/ul Absolute Basos (auto) 0 (0-0.2) 10^3/ul Absolute Nucleated RBC 0.01 10^3/ul Nucleated RBC % 0.1 INR (Anticoag Therapy) 3.02 H (0.89-1.11) Sodium 137 (133-145) mmol/L Potassium 4.2 (3.5-5.0) mmol/L Chloride 99 L (101-111) mmol/L Carbon Dioxide 31 (22-32) mmol/L Anion Gap 7 (2-11) mmol/L BUN 24 (6-24) mg/dL Creatinine 1.43 H (0.67-1.17) mg/dL Est GFR ( Amer) 61.5 (>60) Est GFR (Non-Af Amer) 47.8 (>60) BUN/Creatinine Ratio 16.8 (8-20) Glucose 111 H (70-100) mg/dL Lactic Acid (0.5-2.0) mmol/L Calcium 8.8 (8.6-10.3) mg/dL Total Bilirubin 1.00 (0.2-1.0) mg/dL AST 18 (13-39) U/L ALT 13 (7-52) U/L Alkaline Phosphatase 58 (34-104) U/L Troponin I 0.01 (<0.04) ng/mL C-Reactive Protein 5.23 H (< 5.00) mg/L B-Natriuretic Peptide ( - 100) pg/mL Total Protein 7.0 (6.4-8.9) g/dL Albumin 3.7 (3.2-5.2) g/dL Globulin 3.3 (2-4) g/dL Albumin/Globulin Ratio 1.1 (1-3) Urine Color Urine Appearance Urine pH (5-9) Ur Specific Golden (1.010-1.030) Urine Protein (Negative) Urine Ketones (Negative) Urine Blood (Negative) Urine Nitrate (Negative) Urine Bilirubin (Negative) Urine Urobilinogen (Negative) Ur Leukocyte Esterase (Negative) Urine WBC (Auto) (Absent) Urine RBC (Auto) (Absent) Urine Bacteria (Absent) Urine Glucose (Negative) 11/22/16 11/22/16 11/22/16 Range/Units 14:13 14:13 15:43 WBC (3.5-10.8) 10^3/ul RBC (4.0-5.4) 10^6/ul Hgb (14.0-18.0) g/dl Hct (42-52) % MCV (80-94) fL MCH (27-31) pg MCHC (31-36) g/dl RDW (10.5-15) % Plt Count (150-450) 10^3/ul MPV (7.4-10.4) um3 Neut % (Auto) (38-83) % Lymph % (Auto) (25-47) % [place] % (Auto) (1-9) % Eos % (Auto) (0-6) % Baso % (Auto) (0-2) % Absolute Neuts (auto) (1.5-7.7) 10^3/ul Absolute Lymphs (auto) (1.0-4.8) 10^3/ul Absolute Monos (auto) (0-0.8) 10^3/ul Absolute Eos (auto) (0-0.6) 10^3/ul Absolute Basos (auto) (0-0.2) 10^3/ul Absolute Nucleated RBC 10^3/ul Nucleated RBC % INR (Anticoag Therapy) (0.89-1.11) Sodium (133-145) mmol/L Potassium (3.5-5.0) mmol/L Chloride (101-111) mmol/L Carbon Dioxide (22-32) mmol/L Anion Gap (2-11) mmol/L BUN (6-24) mg/dL Creatinine (0.67-1.17) mg/dL Est GFR ( Amer) (>60) Est GFR (Non-Af Amer) (>60) BUN/Creatinine Ratio (8-20) Glucose (70-100) mg/dL Lactic Acid 1.4 (0.5-2.0) mmol/L Calcium (8.6-10.3) mg/dL Total Bilirubin (0.2-1.0) mg/dL AST (13-39) U/L ALT (7-52) U/L Alkaline Phosphatase (34-104) U/L Troponin I (<0.04) ng/mL C-Reactive Protein (< 5.00) mg/L B-Natriuretic Peptide 252 H ( - 100) pg/mL Total Protein (6.4-8.9) g/dL Albumin (3.2-5.2) g/dL Globulin (2-4) g/dL Albumin/Globulin Ratio (1-3) Urine Color Yellow Urine Appearance Cloudy Urine pH 6.0 (5-9) Ur Specific Golden 1.017 (1.010-1.030) Urine Protein Negative (Negative) Urine Ketones Trace H (Negative) Urine Blood 1+ H (Negative) Urine Nitrate Positive H (Negative) Urine Bilirubin Negative (Negative) Urine Urobilinogen Negative (Negative) Ur Leukocyte Esterase 3+ H (Negative) Urine WBC (Auto) 3+(>20/hpf) H (Absent) Urine RBC (Auto) 3+(>10/hpf) H (Absent) Urine Bacteria 1+ H (Absent) Urine Glucose Negative (Negative) 11/22/16 Range/Units 18:09 WBC (3.5-10.8) 10^3/ul RBC (4.0-5.4) 10^6/ul Hgb (14.0-18.0) g/dl Hct (42-52) % MCV (80-94) fL MCH (27-31) pg MCHC (31-36) g/dl RDW (10.5-15) % Plt Count (150-450) 10^3/ul MPV (7.4-10.4) um3 Neut % (Auto) (38-83) % Lymph % (Auto) (25-47) % [place] % (Auto) (1-9) % Eos % (Auto) (0-6) % Baso % (Auto) (0-2) % Absolute Neuts (auto) (1.5-7.7) 10^3/ul Absolute Lymphs (auto) (1.0-4.8) 10^3/ul Absolute Monos (auto) (0-0.8) 10^3/ul Absolute Eos (auto) (0-0.6) 10^3/ul Absolute Basos (auto) (0-0.2) 10^3/ul Absolute Nucleated RBC 10^3/ul Nucleated RBC % INR (Anticoag Therapy) (0.89-1.11) Sodium (133-145) mmol/L Potassium (3.5-5.0) mmol/L Chloride (101-111) mmol/L Carbon Dioxide (22-32) mmol/L Anion Gap (2-11) mmol/L BUN (6-24) mg/dL Creatinine (0.67-1.17) mg/dL Est GFR ( Amer) (>60) Est GFR (Non-Af Amer) (>60) BUN/Creatinine Ratio (8-20) Glucose (70-100) mg/dL Lactic Acid 1.5 (0.5-2.0) mmol/L Calcium (8.6-10.3) mg/dL Total Bilirubin (0.2-1.0) mg/dL AST (13-39) U/L ALT (7-52) U/L Alkaline Phosphatase (34-104) U/L Troponin I (<0.04) ng/mL C-Reactive Protein (< 5.00) mg/L B-Natriuretic Peptide ( - 100) pg/mL Total Protein (6.4-8.9) g/dL Albumin (3.2-5.2) g/dL Globulin (2-4) g/dL Albumin/Globulin Ratio (1-3) Urine Color Urine Appearance Urine pH (5-9) Ur Specific Golden (1.010-1.030) Urine Protein (Negative) Urine Ketones (Negative) Urine Blood (Negative) Urine Nitrate (Negative) Urine Bilirubin (Negative) Urine Urobilinogen (Negative) Ur Leukocyte Esterase (Negative) Urine WBC (Auto) (Absent) Urine RBC (Auto) (Absent) Urine Bacteria (Absent) Urine Glucose (Negative) Assess/Plan/Problems-Billing Mr Elmore is a 76 yo M who has a h/o HTN, afib, hypothyroidism and HLD who presented to the ER with c/o rigors and dysuria. - Patient Problems (1) Acute systolic CHF (congestive heart failure) Current Visit: Yes Status: Acute Code(s): I50.21 - ACUTE SYSTOLIC ( CONGESTIVE) HEART FAILURE SNOMED Code(s): 044854712 Comment: Nothing to do actuely for his reduced EF but he will need to follow up with Dr. Barron as an outpatient. Will resume his oral lasix today. Try to wean off the O2. Continue to work on getting HR under better control. (2) Gram negative sepsis Current Visit: Yes Status: Acute Comment: The patient remains on ceftriaxone for his sepsis secondary to the E coli UTI and bacteremia. The patient is on D# 12/11 of treatment. Will likely d/c pt home tomorrow on augmentin to complete the full course of treatment. (3) UTI (urinary tract infection) Current Visit: Yes Status: Acute Comment: Continue ceftriaxone for now. Will treat as if the patient has prostatitis. (4) HTN (hypertension) Current Visit: Yes Status: Acute Code(s): I10 - ESSENTIAL (PRIMARY) HYPERTENSION SNOMED Code(s): 28147136 Comment: BP is now stable but remains low normal. Continue home dose of metoprolol. (5) Afib Current Visit: Yes Status: Acute Code(s): I48.91 - UNSPECIFIED ATRIAL FIBRILLATION SNOMED Code(s): 30260157 Comment: HR is improved some. Will give digoxin 0.25mg IV x1 now (had 1 dose yesterday) and likely send the patient home on digoxin 0.25mg daily. Continue coumadin-INR is slightly supratherapuetic today so will reduce the dose. (6) Thrombocytopenia Current Visit: Yes Status: Acute Code(s): D69.6 - THROMBOCYTOPENIA, UNSPECIFIED SNOMED Code(s): 088984674 Comment: I suspect the patient's thrombocytopenia was secondary to sepsis. His plt count continues to improve. (7) Hypothyroid Current Visit: Yes Status: Acute Code(s): E03.9 - HYPOTHYROIDISM, UNSPECIFIED SNOMED Code(s): 10074071 Comment: TSH is in good range-continue home does of synthroid (8) DVT prophylaxis Current Visit: Yes Status: Acute Code(s): EYR7430 - SNOMED Code(s): 841623535 Comment: therapeutic INR (9) Full code status Current Visit: Yes Status: Acute Code(s): Z78.9 - OTHER SPECIFIED HEALTH STATUS SNOMED Code(s): 541005511
[2016-11-27] MEDS: Aspirin EC Low Dose* 81 MG TAB.EC PO SCH (09:24)
[2016-11-27] MEDS: Amiodarone TAB* 200 MG PO SCH (09:24)
[2016-11-27] MEDS: Metoprolol Tartrate TAB* 25 MG PO SCH (09:25)
[2016-11-27] MEDS: Furosemide TAB* 40 MG PO SCH (09:26)
[2016-11-27] MEDS: Metoprolol Tartrate TAB* 50 mg PO SCH (16:35)
[2016-11-27] MEDS ORDERED: Warfarin TAB(*) 3 MG PO ONE (17:00)
[2016-11-27] MEDS: Atorvastatin* 40 MG TAB PO SCH (20:15)
[2016-11-28] MEDS: Levothyroxine TAB* 125 MCG TAB PO SCH (05:15)
[2016-11-28] MEDS: Aspirin EC Low Dose* 81 MG TAB.EC PO SCH (08:59)
[2016-11-28] MEDS: Metoprolol Tartrate TAB* 25 MG PO SCH (08:59)
[2016-11-28] MEDS: Amiodarone TAB* 200 MG PO SCH (08:59)
[2016-11-28] MEDS: Furosemide TAB* 40 MG PO SCH (08:59)
--- NOTE | 2016-11-28 09:51 | PN ---
Subjective Date of Service: 11/28/16 Interval History: Pt is feeling well. He denies any SOB. He has been up to the bathroom this AM without any difficulty. He states he had a normal BM. He feels he is Objective Active Medications: Acetaminophen (Tylenol Tab*) 650 mg PO Q4H PRN PRN Reason: FEVER/PAIN Last Admin: 11/23/16 15:40 Dose: 650 mg Amiodarone HCl (Cordarone Tab*) 200 mg PO DAILY [facility] Last Admin: 11/28/16 08:59 Dose: 200 mg Aspirin (Aspirin Ec Low Dose*) 81 mg PO DAILY [facility] Last Admin: 11/28/16 08:59 Dose: 81 mg Atorvastatin Calcium (Lipitor*) 40 mg PO BEDTIME [facility] Last Admin: 11/27/16 20:15 Dose: 40 mg Furosemide (Lasix Tab*) 40 mg PO DAILY [facility] Last Admin: 11/28/16 08:59 Dose: 40 mg Heparin Sodium (Porcine) (Heparin Flush Picc/Ml/Cvc(*)) 1 - 3 ml FLUSH 0600, 1800 [facility] PRN Reason: Protocol Last Admin: 11/28/16 05:09 Dose: 2 ml Ceftriaxone Sodium 2 gm/ (Sodium Chloride) 100 mls @ 200 mls/hr IVPB Q24H [facility] Last Admin: 11/27/16 10:59 Dose: 200 mls/hr Levothyroxine Sodium (Synthroid Tab*) 125 mcg PO 0600 [facility] Last Admin: 11/28/16 05:15 Dose: 125 mcg Metoprolol Tartrate (Lopressor Tab*) 50 mg PO QPM [facility] Last Admin: 11/27/16 16:35 Dose: Not Given Metoprolol Tartrate (Lopressor Tab*) 25 mg PO QAM [facility] Last Admin: 11/28/16 08:59 Dose: 25 mg Ondansetron HCl (Zofran Inj*) 4 mg IV Q6H PRN PRN Reason: NAUSEA Vital Signs 11/27/16 11/27/16 11/27/16 11:50 12:08 15:49 Temperature 98.2 F 98.4 F Pulse Rate 77 102 Respiratory 18 18 Rate Blood Pressure 82/66 92/54 98/59 (mmHg) O2 Sat by Pulse 96 2 Oximetry 11/27/16 11/27/16 11/27/16 19:58 20:00 20:11 Temperature 97.7 F Pulse Rate 39 83 Respiratory 24 24 Rate Blood Pressure 93/60 (mmHg) O2 Sat by Pulse 98 97 Oximetry 11/28/16 11/28/16 11/28/16 00:17 03:34 07:59 Temperature 98.2 F 97.8 F 97.6 F Pulse Rate 77 112 97 Respiratory 20 20 18 Rate Blood Pressure 111/51 112/62 96/54 (mmHg) O2 Sat by Pulse 96 97 97 Oximetry 11/28/16 11/28/16 08:00 08:10 Temperature Pulse Rate Respiratory 22 Rate Blood Pressure 111/64 (mmHg) O2 Sat by Pulse Oximetry Oxygen Devices in Use Now: Nasal Cannula - 2L-96% Result Diagrams: 11/27/16 05:50 11/27/16 05:50 Additional Lab and Data: Lab Results 11/22/16 11/22/16 11/22/16 Range/Units 14:13 14:13 14:13 WBC 8.0 (3.5-10.8) 10^3/ul RBC 4.14 (4.0-5.4) 10^6/ul Hgb 13.8 L (14.0-18.0) g/dl Hct 42 (42-52) % MCV 102 H (80-94) fL MCH 33 H (27-31) pg MCHC 33 (31-36) g/dl RDW 16 H (10.5-15) % Plt Count 171 (150-450) 10^3/ul MPV 8 (7.4-10.4) um3 Neut % (Auto) 97.5 H (38-83) % Lymph % (Auto) 1.4 L (25-47) % [place] % (Auto) 0.4 L (1-9) % Eos % (Auto) 0.4 (0-6) % Baso % (Auto) 0.3 (0-2) % Absolute Neuts (auto) 7.8 H (1.5-7.7) 10^3/ul Absolute Lymphs (auto) 0.1 L (1.0-4.8) 10^3/ul Absolute Monos (auto) 0 (0-0.8) 10^3/ul Absolute Eos (auto) 0 (0-0.6) 10^3/ul Absolute Basos (auto) 0 (0-0.2) 10^3/ul Absolute Nucleated RBC 0.01 10^3/ul Nucleated RBC % 0.1 INR (Anticoag Therapy) 3.02 H (0.89-1.11) Sodium 137 (133-145) mmol/L Potassium 4.2 (3.5-5.0) mmol/L Chloride 99 L (101-111) mmol/L Carbon Dioxide 31 (22-32) mmol/L Anion Gap 7 (2-11) mmol/L BUN 24 (6-24) mg/dL Creatinine 1.43 H (0.67-1.17) mg/dL Est GFR ( Amer) 61.5 (>60) Est GFR (Non-Af Amer) 47.8 (>60) BUN/Creatinine Ratio 16.8 (8-20) Glucose 111 H (70-100) mg/dL Lactic Acid (0.5-2.0) mmol/L Calcium 8.8 (8.6-10.3) mg/dL Total Bilirubin 1.00 (0.2-1.0) mg/dL AST 18 (13-39) U/L ALT 13 (7-52) U/L Alkaline Phosphatase 58 (34-104) U/L Troponin I 0.01 (<0.04) ng/mL C-Reactive Protein 5.23 H (< 5.00) mg/L B-Natriuretic Peptide ( - 100) pg/mL Total Protein 7.0 (6.4-8.9) g/dL Albumin 3.7 (3.2-5.2) g/dL Globulin 3.3 (2-4) g/dL Albumin/Globulin Ratio 1.1 (1-3) Urine Color Urine Appearance Urine pH (5-9) Ur Specific Happy (1.010-1.030) Urine Protein (Negative) Urine Ketones (Negative) Urine Blood (Negative) Urine Nitrate (Negative) Urine Bilirubin (Negative) Urine Urobilinogen (Negative) Ur Leukocyte Esterase (Negative) Urine WBC (Auto) (Absent) Urine RBC (Auto) (Absent) Urine Bacteria (Absent) Urine Glucose (Negative) 11/22/16 11/22/16 11/22/16 Range/Units 14:13 14:13 15:43 WBC (3.5-10.8) 10^3/ul RBC (4.0-5.4) 10^6/ul Hgb (14.0-18.0) g/dl Hct (42-52) % MCV (80-94) fL MCH (27-31) pg MCHC (31-36) g/dl RDW (10.5-15) % Plt Count (150-450) 10^3/ul MPV (7.4-10.4) um3 Neut % (Auto) (38-83) % Lymph % (Auto) (25-47) % [place] % (Auto) (1-9) % Eos % (Auto) (0-6) % Baso % (Auto) (0-2) % Absolute Neuts (auto) (1.5-7.7) 10^3/ul Absolute Lymphs (auto) (1.0-4.8) 10^3/ul Absolute Monos (auto) (0-0.8) 10^3/ul Absolute Eos (auto) (0-0.6) 10^3/ul Absolute Basos (auto) (0-0.2) 10^3/ul Absolute Nucleated RBC 10^3/ul Nucleated RBC % INR (Anticoag Therapy) (0.89-1.11) Sodium (133-145) mmol/L Potassium (3.5-5.0) mmol/L Chloride (101-111) mmol/L Carbon Dioxide (22-32) mmol/L Anion Gap (2-11) mmol/L BUN (6-24) mg/dL Creatinine (0.67-1.17) mg/dL Est GFR ( Amer) (>60) Est GFR (Non-Af Amer) (>60) BUN/Creatinine Ratio (8-20) Glucose (70-100) mg/dL Lactic Acid 1.4 (0.5-2.0) mmol/L Calcium (8.6-10.3) mg/dL Total Bilirubin (0.2-1.0) mg/dL AST (13-39) U/L ALT (7-52) U/L Alkaline Phosphatase (34-104) U/L Troponin I (<0.04) ng/mL C-Reactive Protein (< 5.00) mg/L B-Natriuretic Peptide 252 H ( - 100) pg/mL Total Protein (6.4-8.9) g/dL Albumin (3.2-5.2) g/dL Globulin (2-4) g/dL Albumin/Globulin Ratio (1-3) Urine Color Yellow Urine Appearance Cloudy Urine pH 6.0 (5-9) Ur Specific Happy 1.017 (1.010-1.030) Urine Protein Negative (Negative) Urine Ketones Trace H (Negative) Urine Blood 1+ H (Negative) Urine Nitrate Positive H (Negative) Urine Bilirubin Negative (Negative) Urine Urobilinogen Negative (Negative) Ur Leukocyte Esterase 3+ H (Negative) Urine WBC (Auto) 3+(>20/hpf) H (Absent) Urine RBC (Auto) 3+(>10/hpf) H (Absent) Urine Bacteria 1+ H (Absent) Urine Glucose Negative (Negative) 11/22/16 Range/Units 18:09 WBC (3.5-10.8) 10^3/ul RBC (4.0-5.4) 10^6/ul Hgb (14.0-18.0) g/dl Hct (42-52) % MCV (80-94) fL MCH (27-31) pg MCHC (31-36) g/dl RDW (10.5-15) % Plt Count (150-450) 10^3/ul MPV (7.4-10.4) um3 Neut % (Auto) (38-83) % Lymph % (Auto) (25-47) % [place] % (Auto) (1-9) % Eos % (Auto) (0-6) % Baso % (Auto) (0-2) % Absolute Neuts (auto) (1.5-7.7) 10^3/ul Absolute Lymphs (auto) (1.0-4.8) 10^3/ul Absolute Monos (auto) (0-0.8) 10^3/ul Absolute Eos (auto) (0-0.6) 10^3/ul Absolute Basos (auto) (0-0.2) 10^3/ul Absolute Nucleated RBC 10^3/ul Nucleated RBC % INR (Anticoag Therapy) (0.89-1.11) Sodium (133-145) mmol/L Potassium (3.5-5.0) mmol/L Chloride (101-111) mmol/L Carbon Dioxide (22-32) mmol/L Anion Gap (2-11) mmol/L BUN (6-24) mg/dL Creatinine (0.67-1.17) mg/dL Est GFR ( Amer) (>60) Est GFR (Non-Af Amer) (>60) BUN/Creatinine Ratio (8-20) Glucose (70-100) mg/dL Lactic Acid 1.5 (0.5-2.0) mmol/L Calcium (8.6-10.3) mg/dL Total Bilirubin (0.2-1.0) mg/dL AST (13-39) U/L ALT (7-52) U/L Alkaline Phosphatase (34-104) U/L Troponin I (<0.04) ng/mL C-Reactive Protein (< 5.00) mg/L B-Natriuretic Peptide ( - 100) pg/mL Total Protein (6.4-8.9) g/dL Albumin (3.2-5.2) g/dL Globulin (2-4) g/dL Albumin/Globulin Ratio (1-3) Urine Color Urine Appearance Urine pH (5-9) Ur Specific Happy (1.010-1.030) Urine Protein (Negative) Urine Ketones (Negative) Urine Blood (Negative) Urine Nitrate (Negative) Urine Bilirubin (Negative) Urine Urobilinogen (Negative) Ur Leukocyte Esterase (Negative) Urine WBC (Auto) (Absent) Urine RBC (Auto) (Absent) Urine Bacteria (Absent) Urine Glucose (Negative) Assess/Plan/Problems-Billing Mr Elmore is a 76 yo M who has a h/o HTN, afib, hypothyroidism and HLD who presented to the ER with c/o rigors and dysuria. - Patient Problems (1) Acute systolic CHF (congestive heart failure) Current Visit: Yes Status: Acute Code(s): I50.21 - ACUTE SYSTOLIC ( CONGESTIVE) HEART FAILURE SNOMED Code(s): 172952659 Comment: Nothing to do actuely for his reduced EF but he will need to follow up with Dr. Barron as an outpatient. Continue home dose of lasix. Work to wean off O2. (2) Gram negative sepsis Current Visit: Yes Status: Acute Comment: The patient remains on ceftriaxone for his sepsis secondary to the E coli UTI and bacteremia. The patient is on D# 01/11 of treatment. D/C home on augmentin to complete the full course of therapy. (3) UTI (urinary tract infection) Current Visit: Yes Status: Acute Comment: D/C home on augmentin for another 15 days. (4) HTN (hypertension) Current Visit: Yes Status: Acute Code(s): I10 - ESSENTIAL (PRIMARY) HYPERTENSION SNOMED Code(s): 44354285 Comment: BP is low normal. Continue current medication regimen. (5) Afib Current Visit: Yes Status: Acute Code(s): I48.91 - UNSPECIFIED ATRIAL FIBRILLATION SNOMED Code(s): 84582148 Comment: HR this AM is back in the 110-120's. I would like his HR to be under better control on d/c. Will ask for cardiology follow up for help in controlling his HR. Will give oral digoxin now and monitor for response. INR is supratherapeutic today. Will cut dose back to 2mg tonight. Will need close monitoring of his INR as an outpatient. (6) Thrombocytopenia Current Visit: Yes Status: Acute Code(s): D69.6 - THROMBOCYTOPENIA, UNSPECIFIED SNOMED Code(s): 996010799 Comment: I suspect the patient's thrombocytopenia was secondary to sepsis. His plt count continues to improve. (7) Hypothyroid Current Visit: Yes Status: Acute Code(s): E03.9 - HYPOTHYROIDISM, UNSPECIFIED SNOMED Code(s): 98036221 Comment: TSH is in good range-continue home does of synthroid. (8) DVT prophylaxis Current Visit: Yes Status: Acute Code(s): PZY1067 - SNOMED Code(s): 733181252 Comment: supratherapeutic INR (9) Full code status Current Visit: Yes Status: Acute Code(s): Z78.9 - OTHER SPECIFIED HEALTH STATUS SNOMED Code(s): 342090786
[2016-11-28] MEDS ORDERED: Digoxin TAB* 0.25 MG PO ONE (10:07)
[2016-11-28 11:00] LABS: BUN/Creatinine Ratio 16.7 (8-20); Calcium 8.8 mg/dL (8.6-10.3); EGFR African American 97.4 (>60); EGFR Non-African American 75.8 (>60)
[2016-11-28 11:11] LABS: Digoxin 0.5 ng/ml (0.8-2.0)
[2016-11-28 15:16] VITALS: BP 120/50
[2016-11-28] MEDS ORDERED: Warfarin TAB(*) 1 MG PO ONE (17:00)
--- NOTE | 2016-11-29 04:37 | DS ---
DISCHARGE SUMMARY: DATE OF ADMISSION: 11/22/16 DATE OF DISCHARGE: 11/28/16 PRIMARY CARE PROVIDER: Julio Freire MD EDUCATIONAL MANAGER: The patient will follow up with either Dr. Barron or Dr. Nelson. PRINCIPAL DIAGNOSES: 1. Sepsis/severe sepsis secondary to E. coli urinary tract infection and bacteremia. 2. Severe systolic congestive heart failure. 3. Atrial fibrillation with RVR. SECONDARY DIAGNOSES: 1. Hypertension. 2. Thrombocytopenia - improving. 3. Hypothyroidism. DISCHARGE MEDICATIONS: 1. Coumadin 1.25 mg p.o. tonight and tomorrow followed by 2.5 mg p.o. Monday, Monday, and Monday and 3.75 mg p.o. Monday, Monday, , and Monday. 2. Aspirin 81 mg p.o. daily. 3. Metoprolol tartrate 25 mg p.o. q.a.m. and 50 mg p.o. q.p.m. 4. Synthroid 125 mcg p.o. daily. 5. Lasix 40 mg p.o. daily. 6. Amiodarone 200 mg p.o. daily. 7. Lisinopril 2.5 mg p.o. daily (new). 8. Digoxin 0.25 mg p.o. daily (new). 9. Lipitor 20 mg p.o. at bedtime. 10. Augmentin 500 mg p.o. b.i.d. x15 days. HOSPITAL COURSE: Mr. Elmore is a 76-year-old male with a known history of atrial fibrillation, obesity, and hypothyroidism, who presents to the emergency room with complaints of chills and shaking. The patient was ultimately found to have a urinary tract infection. In fact on admission, the patient was septic. The patient was admitted to the telemetry floor; however, he was noted to be hypotensive the day after admission. The patient was given several liters of IV fluid and with this, his blood pressure has improved. There were concerns that the patient will need to be admitted to the intensive care unit for treatment of his sepsis; however, this did not prove to be the case. The patient was able to be managed on the floor. Again, he received several liters of IV fluid and ceftriaxone for his urinary tract infection and bacteremia. Ultimately, the urine and blood both came back positive for E. coli. The patient was seen in consultation by Dr. Wren, who agreed with the current management. The patient will be treated for 21 days total if this is a prostatitis leading to his UTI and bacteremia. On admission, the patient was also noted to be in atrial fibrillation with rapid ventricular response. The patient carries a history of AFib. It is unclear how well this is controlled. The patient has not been seen by a glass forming engineer for quite sometime. He states he was followed by Dr. Barron in the past; however, he has not seen him recently. The patient has been maintained on amiodarone and metoprolol for heart rate control as an outpatient. Initially , it was felt that the patient's marked tachycardia was likely secondary to his underlying sepsis. As his sepsis improved, his tachycardia did improve; however , did not completely resolve. The patient has better controlled heart rate with the addition of digoxin 0.25 mg p.o. daily. The patient, however, still has heart rates up in the one-teens to 120s when up and moving about. I did ask Dr. Barron to follow up on the day of discharge for help and control of the patient's heart rate, and he did not recommend anything further stating that it would take sometime for his heart rate to come under control. The difficulty in controlling this patient's heart rate is that his blood pressure is low normal, and therefore, there is not much room to move on his dose of metoprolol or addition of other rate controlling agents. The patient's INR is supratherapeutic on the day of discharge at 4.16. I have asked the patient to cut his Coumadin dose to 1.25 mg p.o. tonight and tomorrow night with a followup INR on 12/01/16. The patient also has a mechanical mitral valve and therefore, his goal INR is 2.5 to 3.5. Given the patient's rapid heart rate and significant lower extremity edema, the decision was made to obtain a trans-thoracic echocardiogram. The echocardiogram revealed significantly reduced ejection fraction of 20% to 25%. This is a dramatic change from catheterization in 2004, which revealed a normal EF at that time. At that time, also the patient was noted to have clean coronary arteries. The cause of the patient's systolic dysfunction is not completely clear. I question if this maybe a tachycardia-induced cardiomyopathy versus ischemic. Dr. Nelson was asked to consult for this finding. He recommended rate control and following up with Cardiology as an outpatient. Nothing acute was recommended during his hospitalization. The patient will likely need ischemic workup as an outpatient once he has fully recovered from his acute infection. The patient is being started on lisinopril 2.5 mg p.o. daily as recommended by Dr. Barron. He will have a followup BMP on 12/01/16 to ensure that his renal function and potassium are in okay range. In terms of the patient's chronic medical condition, he has been maintained on his usual home medication regimen. He feels well on the day of discharge and has been up and ambulating in the [place] without any oxygen maintaining his oxygen saturations in an appropriate level. At this point, it is felt that the patient is stable for discharge home. FOLLOWUP CONCERNS: The patient is being discharged home today, 11/28/16. The patient is to follow up with Dr. Freire in the next 4 to 7 days. He is to followup either with Dr. Barron or Dr. Nelson in the next 1 to 2 weeks. ACTIVITY LEVEL: As tolerated. DIET: Heart healthy. CONDITION ON DISCHARGE: Stable. TIME SPENT: Thirty-five minutes was spent discharging this patient. CC: Dr. Freire; Dr. Barron; Dr. Nelson* [id number]/[facility] #: [id number]
== END 2016-11-28 16:15 | disposition home or self-care (01) | DRG 871 ==
LOC: ED 13:07 → MEDTELE 18:13
PROVIDERS: ADMIT Internal Medicine; ATTEND Hospitalist
PROC: 02HV33Z Insertion of Infusion Device into Superior Vena Cava, Percutaneous Approach (ICD-10-PCS; principal; 2016-11-23)
DX: A41.51 Sepsis due to Escherichia coli [E. coli] (principal); I50.21 Acute systolic (congestive) heart failure; N17.9 Acute kidney failure, unspecified; I95.9 Hypotension, unspecified; D69.6 Thrombocytopenia, unspecified; Z68.43 Body mass index [BMI] 50.0-59.9, adult; I11.0 Hypertensive heart disease with heart failure; N39.0 Urinary tract infection, site not specified; E66.01 Morbid (severe) obesity due to excess calories; R65.20 Severe sepsis without septic shock; I48.91 Unspecified atrial fibrillation; E03.9 Hypothyroidism, unspecified; N41.9 Inflammatory disease of prostate, unspecified; E78.5 Hyperlipidemia, unspecified; G47.33 Obstructive sleep apnea (adult) (pediatric); Z79.01 Long term (current) use of anticoagulants; Z95.2 Presence of prosthetic heart valve; Z79.82 Long term (current) use of aspirin; Z79.899 Other long term (current) drug therapy; Z82.49 Family history of ischemic heart disease and other diseases of the circulatory system; Z80.9 Family history of malignant neoplasm, unspecified
CPT/HCPCS: 36415; 71010; 76770; 80048; 80053; 80162; 81003; 81015; 83605; 83735; 83880; 84443; 84484; 85025; 85610; 86140; 87040; 87077; 87086; 87186; 93005; 93306; 94760; A9270-GY; C1751; J0696; J0744; J1160; J1885; J1940

== ENCOUNTER 2023-01-21 10:51 | Inpatient (IN) ==
[2023-01-21] MEDS ORDERED: Ondansetron 4 mg VIAL 2 MG/ML 2 ml VIAL IV ONE (11:36)
[2023-01-21 12:29] LABS: ABS Lymphocytes 0.3 10^3/uL (1.0-4.8); ABS Monocytes 1.4 10^3/uL (0.0-1.1); ABS Neutrophils 13.1 10^3/uL (1.5-7.6); Eosinophil % 0.1 %; Hematocrit 36.8 % (38-53); Hemoglobin 12.5 g/dL (13.2-16.3); Lymphocyte % 2.3 %; Mean Corpuscular Hemoglobin 31.8 pg (27-33); Mean Corpuscular Volume 93.6 fL (80-97); Mean Platelet Volume 7.4 fL (7.5-11.2); Platelet Count 248 10^3/uL (150-450); Red Blood Count 3.93 10^6/uL (4.06-5.63); Red Cell Distribution Width 15.5 % (12-17); White Blood Count 14.8 10^3/uL (3.6-10.2)
[2023-01-21 12:47] LABS: Albumin 3.5 g/dL (3.2-5.2); C Reactive Protein 32.57 mg/L (<8.01); Calcium 8.8 mg/dL (8.6-10.3); Creatinine, Serum 1.35 mg/dL (0.67-1.17); Globulin 3.6 g/dL (2-4); Potassium 4.3 mmol/L (3.5-5.0); Total Bilirubin 1.1 mg/dL (0.2-1.0); Total Protein 7.1 g/dL (6.4-8.9); eGFR CKD-EPI 51.8 (>60)
[2023-01-21] MEDS ORDERED: NS 0.9% 500 ml BAG 500 ML IV ONE (14:45)
[2023-01-21 16:40] LABS: Urine Appearance Cloudy; Urine Bilirubin Negative (Negative); Urine Blood 1+ (Negative); Urine Color Amber; Urine Glucose Negative (Negative); Urine Ketones Negative (Negative); Urine Nitrite Positive (Negative); Urine Protein 2+(100 mg/dL) (Negative); Urine Specific Gravity 1.024 (1.002-1.030); Urine Urobilinogen Negative (Negative)
[2023-01-21 16:46] LABS: Urine Bacteria 1+ (Absent); Urine Red Blood Cell 1+(3-5/hpf) (Absent); Urine Squamous Epithelial Cell Present (Absent); Urine White Blood Cell 3+(>20/hpf) (Absent)
[2023-01-21] MEDS ORDERED: cefTRIAXone 1 gm/50 mL D5W 1 GM/50 ML BAG IV SCH ×2 (20:45→23:00)
[2023-01-21] MEDS ORDERED: NS 0.9% 1000 ml BAG 1,000 ML IV SCH (20:45)
[2023-01-21 21:49] LABS: INR 3.63 (0.88-1.18)
[2023-01-21 22:20] LABS: Digoxin 1.1 ng/ml (0.8-2.0)
[2023-01-21 22:36] LABS: TSH Ultra Thyroid Stim Horm 1.01 mcIU/mL (0.34-5.60)
[2023-01-21] MEDS: cefTRIAXone 1 gm/50 mL D5W 1 GM/50 ML BAG IV SCH (22:56)
[2023-01-22] MEDS ORDERED: Lactated Ringers 1000 ml BAG 1,000 ML IV ONE (01:17)
[2023-01-22 08:35] LABS: ABS Lymphocytes 0.3 10^3/uL (1.0-4.8); ABS Monocytes 0.8 10^3/uL (0.0-1.1); ABS Neutrophils 12.9 10^3/uL (1.5-7.6); Hematocrit 32.7 % (38-53); Hemoglobin 11.3 g/dL (13.2-16.3); Mean Corpuscular Hgb Conc 34.4 g/dL (31-36); Mean Corpuscular Volume 95.8 fL (80-97); Mean Platelet Volume 7.1 fL (7.5-11.2); Platelet Count 196 10^3/uL (150-450); Red Blood Count 3.41 10^6/uL (4.06-5.63); Red Cell Distribution Width 15.8 % (12-17)
[2023-01-22 08:36] LABS: Lymphocyte % 2.3 %
[2023-01-22 08:42] LABS: INR 3.88 (0.88-1.18)
[2023-01-22 08:59] LABS: Calcium 7.9 mg/dL (8.6-10.3); Creatinine, Serum 1.22 mg/dL (0.67-1.17); Potassium 4.3 mmol/L (3.5-5.0); eGFR CKD-EPI 58.5 (>60)
[2023-01-22 09:36] LABS: C Reactive Protein 145.37 mg/L (<8.01)
[2023-01-22] MEDS ORDERED: Warfarin per PHARMACY **NOTE FOLLOW UP SCH (10:00)
[2023-01-22] MEDS ORDERED: Vancomycin 1,000 MG in NS 0.9% 250 ml 250 ML IVPB ONE (10:58)
[2023-01-22] MEDS ORDERED: Vancomycin per Pharmacy 1 EA NOTE FOLLOW UP SCH (11:00)
[2023-01-22] MEDS ORDERED: Vancomycin 2,000 MG in NS 0.9% 500 ml BAG 500 ML IVPB ONE (11:30)
[2023-01-22] MEDS ORDERED: Lidocaine 1% VIAL 10 MG/ML VIAL 30 ML INJ ONE (13:09)
[2023-01-22] MEDS ORDERED: methylPREDNISolone ACETATE 40 mg/ml 1 ml VIAL **not IV INTRAARTIC ONE (13:11)
[2023-01-22 14:16] LABS: Body Fluid Appearance Cloudy; Body Fluid Color Yellow; Body Fluid Source Synovial Fluid
[2023-01-22 14:36] LABS: Body Fluid WBC 71601 /mcL
[2023-01-22 16:48] LABS: Body Fluid Mono 5 %; Body Fluid Total Cells Counted 200
[2023-01-22] MEDS ORDERED: Warfarin - No Order Today **NOTE FOLLOW UP ONE (17:00)
[2023-01-22] MEDS ORDERED: Lidocaine 2% PF 5 ML VIAL ONE (20:04)
[2023-01-22] MEDS ORDERED: Propofol 10 MG/ML 20 ML BTL ONE (20:04)
[2023-01-22] MEDS ORDERED: fentaNYL 100 mcg/2 ml 50 MCG/ML VIAL ONE (20:07)
[2023-01-22] MEDS ORDERED: Phenylephrine 40 mcg/mL 10mL (400mcg) SYRINGE ONE (20:22)
[2023-01-22] MEDS ORDERED: fentaNYL 100 mcg/2 ml 50 MCG/ML VIAL IV PRN (20:56)
[2023-01-22] MEDS ORDERED: Ondansetron 4 mg VIAL 2 MG/ML 2 ml VIAL IV PRN (20:56)
[2023-01-22] MEDS ORDERED: Naloxone 0.4 mg VIAL 0.4 mg/ml 1 ml VIAL IV PRN (20:56)
[2023-01-22] MEDS ORDERED: Bupivacaine 0.25% w/EPI 10 ML SDV ONE (21:12)
[2023-01-22] MEDS: cefTRIAXone 1 gm/50 mL D5W 1 GM/50 ML BAG IV SCH (23:17)
[2023-01-23] MEDS ORDERED: Lactated Ringers 1000 ml BAG 1,000 ML IV ONE (01:31)
[2023-01-23] MEDS ORDERED: Vancomycin 1000 MG in NS 0.9% 250 ML IVPB SCH (03:00)
[2023-01-23 06:03] LABS: INR 2.13 (0.88-1.18)
[2023-01-23 06:13] LABS: ABS Lymphocytes 0.5 10^3/uL (1.0-4.8); ABS Neutrophils 10.8 10^3/uL (1.5-7.6); Eosinophil % 0.1 %; Hematocrit 25.9 % (38-53); Hemoglobin 8.9 g/dL (13.2-16.3); Lymphocyte % 3.8 %; Mean Corpuscular Hemoglobin 32.4 pg (27-33); Mean Corpuscular Hgb Conc 34.4 g/dL (31-36); Mean Corpuscular Volume 94.3 fL (80-97); Mean Platelet Volume 7.3 fL (7.5-11.2); Platelet Count 168 10^3/uL (150-450); Red Blood Count 2.74 10^6/uL (4.06-5.63); Red Cell Distribution Width 15.5 % (12-17); White Blood Count 12.3 10^3/uL (3.6-10.2)
[2023-01-23 06:24] LABS: Albumin/Globulin Ratio 0.9 (1-3); Calcium 6.5 mg/dL (8.6-10.3); Creatinine, Serum 0.79 mg/dL (0.67-1.17); Globulin 2.3 g/dL (2-4); Magnesium 1.5 mg/dL (1.9-2.7); Potassium 3.8 mmol/L (3.5-5.0); Total Bilirubin 0.7 mg/dL (0.2-1.0); Total Protein 4.3 g/dL (6.4-8.9); eGFR CKD-EPI 87.6 (>60)
[2023-01-23] MEDS ORDERED: Magnesium Sulf 4 GM/100 ML IV 4,000 MG/100 ML BAG IVPB ONE (07:53)
[2023-01-23] MEDS: cefTRIAXone 2 gm/50 mL D5W 2 GM/50 ML BAG IV SCH (11:08)
[2023-01-23] MEDS: Warfarin DAILY REMINDER **NOTE FOLLOW UP SCH (19:56)
[2023-01-24 06:20] LABS: ABS Eosinophils 0.1 10^3/uL (0.0-0.5); ABS Lymphocytes 0.5 10^3/uL (1.0-4.8); ABS Monocytes 0.8 10^3/uL (0.0-1.1); ABS Neutrophils 9.1 10^3/uL (1.5-7.6); Eosinophil % 0.9 %; Hematocrit 25.3 % (38-53); Lymphocyte % 5.2 %; Mean Corpuscular Hemoglobin 33.2 pg (27-33); Mean Corpuscular Hgb Conc 35.3 g/dL (31-36); Mean Platelet Volume 7.5 fL (7.5-11.2); Platelet Count 180 10^3/uL (150-450); Red Cell Distribution Width 15.2 % (12-17); White Blood Count 10.6 10^3/uL (3.6-10.2)
[2023-01-24 06:23] LABS: INR 2.29 (0.88-1.18)
[2023-01-24 06:35] LABS: Calcium 7.7 mg/dL (8.6-10.3); Creatinine, Serum 0.84 mg/dL (0.67-1.17); Potassium 4.1 mmol/L (3.5-5.0)
[2023-01-24] MEDS: Aspirin EC 81 mg TAB.EC (enteric coated) PO SCH (08:20)
[2023-01-24 08:48] LABS: C Reactive Protein 148.19 mg/L (<8.01)
[2023-01-24] MEDS: cefTRIAXone 2 gm/50 mL D5W 2 GM/50 ML BAG IV SCH (12:41)
[2023-01-24] MEDS ORDERED: Vancomycin Trough Check NOTE FOLLOW UP ONE (14:30)
[2023-01-24] MEDS: Warfarin DAILY REMINDER **NOTE FOLLOW UP SCH (19:19)
[2023-01-25 06:29] LABS: ABS Eosinophils 0.1 10^3/uL (0.0-0.5); ABS Lymphocytes 0.5 10^3/uL (1.0-4.8); ABS Neutrophils 8.1 10^3/uL (1.5-7.6); Eosinophil % 1.1 %; Hematocrit 26.1 % (38-53); Hemoglobin 9.1 g/dL (13.2-16.3); Lymphocyte % 4.7 %; Mean Corpuscular Hemoglobin 33.2 pg (27-33); Mean Corpuscular Hgb Conc 34.8 g/dL (31-36); Mean Corpuscular Volume 95.5 fL (80-97); Mean Platelet Volume 7.2 fL (7.5-11.2); Platelet Count 205 10^3/uL (150-450); Red Blood Count 2.73 10^6/uL (4.06-5.63); Red Cell Distribution Width 15.2 % (12-17); White Blood Count 9.7 10^3/uL (3.6-10.2)
[2023-01-25 06:40] LABS: INR 2.63 (0.88-1.18)
[2023-01-25] MEDS ORDERED: NS 0.9% 1000 ml BAG 1,000 ML IV ONE (07:00)
[2023-01-25 07:12] LABS: Magnesium 1.8 mg/dL (1.9-2.7); Potassium 4.5 mmol/L (3.5-5.0)
[2023-01-25 07:18] LABS: Creatinine, Serum 0.84 mg/dL (0.67-1.17)
[2023-01-25] MEDS ORDERED: Midazolam 5 mg/5 ml VIAL 1 mg/ml 5 ml VIAL (5 mg) ONE (07:58)
[2023-01-25] MEDS ORDERED: Benzocaine/Butamben/Tetracain (CETACAINE - SINGLE USE) 5 gm TOPICAL ONE ×2 (07:58→08:13)
[2023-01-25] MEDS ORDERED: Flumazenil 0.5 mg/5 ml 0.1 MG/ML 5 ml VIAL ONE (07:58)
[2023-01-25] MEDS ORDERED: fentaNYL 100 mcg/2 ml 50 MCG/ML VIAL ONE (07:58)
[2023-01-25] MEDS ORDERED: Naloxone 0.4 mg VIAL 0.4 mg/ml 1 ml VIAL ONE (07:58)
[2023-01-25] MEDS ORDERED: fentaNYL 100 mcg/2 ml 50 MCG/ML VIAL IV SLOW PU ONE (08:12)
[2023-01-25] MEDS ORDERED: Midazolam 10 mg/10 ml VIAL 1 mg/ml 10 ml VIAL (10 mg) IV SLOW PU ONE (08:12)
[2023-01-25] MEDS ORDERED: Magnesium Sulfate 2 gm BAG 2 GM/50 ML BAG IVPB ONE (08:47)
[2023-01-25] MEDS: Aspirin EC 81 mg TAB.EC (enteric coated) PO SCH (10:39)
[2023-01-25] MEDS: cefTRIAXone 2 gm/50 mL D5W 2 GM/50 ML BAG IV SCH (12:31)
[2023-01-25] MEDS ORDERED: Albuterol HFA INHALER 8 gm MDI INH PRN (13:38)
[2023-01-25] MEDS: Tiotropium Brom/Olodaterol MDI (ACUTE) INH SCH ×2 (13:53→14:31)
[2023-01-25] MEDS ORDERED: Albuterol 2.5mg/3 ml (0.083%) NEB.SOLN INH ONE ×3 (19:08→23:59)
[2023-01-25] MEDS: Mometasone/Formoter 100/5 MDI INH SCH (19:35)
[2023-01-26 06:09] LABS: ABS Eosinophils 0.1 10^3/uL (0.0-0.5); ABS Lymphocytes 0.5 10^3/uL (1.0-4.8); ABS Neutrophils 8.6 10^3/uL (1.5-7.6); Eosinophil % 0.6 %; Hematocrit 24.9 % (38-53); Hemoglobin 8.5 g/dL (13.2-16.3); Lymphocyte % 4.9 %; Mean Corpuscular Hemoglobin 32.2 pg (27-33); Mean Corpuscular Hgb Conc 34.1 g/dL (31-36); Mean Corpuscular Volume 94.5 fL (80-97); Mean Platelet Volume 7.3 fL (7.5-11.2); Platelet Count 229 10^3/uL (150-450); Red Blood Count 2.63 10^6/uL (4.06-5.63); Red Cell Distribution Width 15.5 % (12-17); White Blood Count 10.1 10^3/uL (3.6-10.2)
[2023-01-26 06:15] LABS: INR 3.7 (0.88-1.18)
[2023-01-26 06:24] LABS: Anion Gap 6 mmol/L (2-16); Blood Urea Nitrogen 14 mg/dL (6-24); CO2 Carbon Dioxide 28 mmol/L (22-32); Calcium 7.9 mg/dL (8.6-10.3); Chloride 97 mmol/L (101-111); Creatinine, Serum 0.82 mg/dL (0.67-1.17); Glucose 118 mg/dL (70-100); Magnesium 2.1 mg/dL (1.9-2.7); Potassium 4.6 mmol/L (3.5-5.0); Sodium 131 mmol/L (135-145); eGFR CKD-EPI 86.6 (>60)
[2023-01-26] MEDS: Mometasone/Formoter 100/5 MDI INH SCH ×2 (07:37→20:16)
[2023-01-26] MEDS: Aspirin EC 81 mg TAB.EC (enteric coated) PO SCH (08:52)
[2023-01-26 11:20] LABS: Corrected Retic Count 0.7 % (0.5-1.5); Hematocrit for Retic CNT 25.2 % (38-53); Immature Retic Fraction 0.56
[2023-01-26] MEDS: Warfarin DAILY REMINDER **NOTE FOLLOW UP SCH ×2 (11:40→17:27)
[2023-01-26] MEDS: cefTRIAXone 2 gm/50 mL D5W 2 GM/50 ML BAG IV SCH (11:56)
[2023-01-26 12:15] LABS: % Iron Saturation 13 % (15-55); .Transferrin 113 mg/dL (203-362); Iron < 20 ug/dL (50-212); LDH 230 U/L (140-271); Total Iron Binding Capacity 158 mcg/dL (250-450); Unsaturated Iron Binding 138 ug/dL
[2023-01-26] MEDS: Polyethylene Glycol 3350 17 GM PACKET PO SCH (14:25)
[2023-01-26] MEDS: Senna TAB 8.6 mg TAB PO SCH (14:25)
[2023-01-26] MEDS: Albuterol HFA INHALER 8 gm MDI INH PRN (18:03)
[2023-01-26] MEDS ORDERED: Furosemide 20 mg/2 ml IV VIAL IV ONE (18:19)
[2023-01-27 06:34] LABS: ABS Basophils 0.1 10^3/uL (0.0-0.1); ABS Eosinophils 0.1 10^3/uL (0.0-0.5); ABS Lymphocytes 0.5 10^3/uL (1.0-4.8); ABS Neutrophils 10.3 10^3/uL (1.5-7.6); Hematocrit 26.9 % (38-53); Hemoglobin 9.2 g/dL (13.2-16.3); Lymphocyte % 4.1 %; Mean Corpuscular Hemoglobin 32.6 pg (27-33); Mean Corpuscular Hgb Conc 34.1 g/dL (31-36); Mean Corpuscular Volume 95.5 fL (80-97); Mean Platelet Volume 7.4 fL (7.5-11.2); Platelet Count 282 10^3/uL (150-450); Red Blood Count 2.82 10^6/uL (4.06-5.63); Red Cell Distribution Width 15.4 % (12-17)
[2023-01-27 06:42] LABS: INR 3.6 (0.88-1.18)
[2023-01-27 06:48] LABS: C Reactive Protein 154.65 mg/L (<8.01); Calcium 8.2 mg/dL (8.6-10.3); Creatinine, Serum 0.81 mg/dL (0.67-1.17); Magnesium 1.9 mg/dL (1.9-2.7); Potassium 4.5 mmol/L (3.5-5.0); eGFR CKD-EPI 86.9 (>60)
[2023-01-27] MEDS: Mometasone/Formoter 100/5 MDI INH SCH ×2 (07:58→18:56)
[2023-01-27] MEDS: Aspirin EC 81 mg TAB.EC (enteric coated) PO SCH (09:27)
[2023-01-27] MEDS: Senna TAB 8.6 mg TAB PO SCH (09:28)
[2023-01-27] MEDS: Polyethylene Glycol 3350 17 GM PACKET PO SCH (09:29)
[2023-01-27] MEDS: cefTRIAXone 2 gm/50 mL D5W 2 GM/50 ML BAG IV SCH (12:28)
[2023-01-27] MEDS: Warfarin DAILY REMINDER **NOTE FOLLOW UP SCH (17:13)
[2023-01-28 05:37] LABS: ABS Basophils 0.1 10^3/uL (0.0-0.1); ABS Eosinophils 0.2 10^3/uL (0.0-0.5); ABS Lymphocytes 0.5 10^3/uL (1.0-4.8); ABS Monocytes 0.9 10^3/uL (0.0-1.1); ABS Neutrophils 7.9 10^3/uL (1.5-7.6); ABS Nucleated RBC 0.01 10^3/ul; Eosinophil % 2.1 %; Hematocrit 25.1 % (38-53); Hemoglobin 8.7 g/dL (13.2-16.3); Lymphocyte % 5.2 %; Mean Corpuscular Hemoglobin 32.8 pg (27-33); Mean Corpuscular Hgb Conc 34.8 g/dL (31-36); Mean Corpuscular Volume 94.3 fL (80-97); Mean Platelet Volume 7.3 fL (7.5-11.2); Nucleated Red Blood Cells % 0.1 /100 WBC (0.0-0.4); Platelet Count 293 10^3/uL (150-450); Red Blood Count 2.66 10^6/uL (4.06-5.63); Red Cell Distribution Width 15.5 % (12-17); White Blood Count 9.7 10^3/uL (3.6-10.2)
[2023-01-28 05:44] LABS: INR 4.33 (0.88-1.18)
[2023-01-28 06:00] LABS: Calcium 8.1 mg/dL (8.6-10.3); Creatinine, Serum 0.81 mg/dL (0.67-1.17); Magnesium 1.9 mg/dL (1.9-2.7); Potassium 4.8 mmol/L (3.5-5.0); eGFR CKD-EPI 86.9 (>60)
[2023-01-28] MEDS: Mometasone/Formoter 100/5 MDI INH SCH ×2 (07:17→18:59)
[2023-01-28] MEDS: Aspirin EC 81 mg TAB.EC (enteric coated) PO SCH (09:44)
[2023-01-28] MEDS: Senna TAB 8.6 mg TAB PO SCH (09:44)
[2023-01-28] MEDS: Polyethylene Glycol 3350 17 GM PACKET PO SCH (09:44)
[2023-01-28] MEDS: cefTRIAXone 2 gm/50 mL D5W 2 GM/50 ML BAG IV SCH (12:10)
[2023-01-28] MEDS ORDERED: Magnesium Sulfate IV 1GM/100ML 1 GM/100 ML BAG IV ONE (13:15)
[2023-01-28] MEDS ORDERED: Warfarin - No Order Today **NOTE FOLLOW UP ONE (17:00)
[2023-01-28] MEDS: Warfarin DAILY REMINDER **NOTE FOLLOW UP SCH (18:12)
[2023-01-28 18:30] LABS: B. burgdorferi PCR Negative (Negative); B. garinii/B. afzellii PCR Negative (Negative); Lyme Disease Source LEFT KNEE FLUID
[2023-01-28] MEDS: Albuterol HFA INHALER 8 gm MDI INH PRN (22:39)
[2023-01-29 06:30] LABS: Hematocrit 25.6 % (38-53); Hemoglobin 8.7 g/dL (13.2-16.3); Mean Corpuscular Hemoglobin 32.7 pg (27-33); Mean Corpuscular Volume 95.9 fL (80-97); Mean Platelet Volume 7.1 fL (7.5-11.2); Platelet Count 337 10^3/uL (150-450); Red Blood Count 2.67 10^6/uL (4.06-5.63); Red Cell Distribution Width 15.8 % (12-17); White Blood Count 9.5 10^3/uL (3.6-10.2)
[2023-01-29 06:42] LABS: INR 3.65 (0.88-1.18)
[2023-01-29 06:46] LABS: Calcium 8.3 mg/dL (8.6-10.3); Creatinine, Serum 0.86 mg/dL (0.67-1.17); Magnesium 2.1 mg/dL (1.9-2.7); Potassium 4.4 mmol/L (3.5-5.0); eGFR CKD-EPI 85.4 (>60)
[2023-01-29] MEDS: Mometasone/Formoter 100/5 MDI INH SCH ×2 (08:23→19:12)
[2023-01-29 08:28] LABS: C Reactive Protein 168.87 mg/L (<8.01)
[2023-01-29] MEDS: Senna TAB 8.6 mg TAB PO SCH (08:35)
[2023-01-29] MEDS: Polyethylene Glycol 3350 17 GM PACKET PO SCH (08:35)
[2023-01-29] MEDS: Aspirin EC 81 mg TAB.EC (enteric coated) PO SCH (08:35)
[2023-01-29] MEDS: cefTRIAXone 2 gm/50 mL D5W 2 GM/50 ML BAG IV SCH (12:02)
[2023-01-29] MEDS ORDERED: Warfarin - No Order Today **NOTE FOLLOW UP ONE (17:00)
[2023-01-29] MEDS: Albuterol HFA INHALER 8 gm MDI INH PRN (22:13)
[2023-01-30 06:47] LABS: INR 3.2 (0.88-1.18)
[2023-01-30 06:51] LABS: ABS Basophils 0.1 10^3/uL (0.0-0.1); ABS Eosinophils 0.2 10^3/uL (0.0-0.5); ABS Lymphocytes 0.6 10^3/uL (1.0-4.8); ABS Neutrophils 10.2 10^3/uL (1.5-7.6); ABS Nucleated RBC 0.01 10^3/ul; Eosinophil % 1.6 %; Hematocrit 24.5 % (38-53); Hemoglobin 8.3 g/dL (13.2-16.3); Lymphocyte % 4.9 %; Mean Corpuscular Hemoglobin 32.3 pg (27-33); Mean Corpuscular Volume 95.1 fL (80-97); Mean Platelet Volume 7.4 fL (7.5-11.2); Nucleated Red Blood Cells % 0.1 /100 WBC (0.0-0.4); Platelet Count 382 10^3/uL (150-450); Red Blood Count 2.58 10^6/uL (4.06-5.63); Red Cell Distribution Width 15.2 % (12-17)
[2023-01-30 07:00] LABS: Calcium 8.1 mg/dL (8.6-10.3); Creatinine, Serum 0.83 mg/dL (0.67-1.17); Magnesium 2.1 mg/dL (1.9-2.7); Potassium 4.6 mmol/L (3.5-5.0); eGFR CKD-EPI 86.3 (>60)
[2023-01-30] MEDS: Polyethylene Glycol 3350 17 GM PACKET PO SCH (08:03)
[2023-01-30] MEDS: Senna TAB 8.6 mg TAB PO SCH (08:04)
[2023-01-30] MEDS: Aspirin EC 81 mg TAB.EC (enteric coated) PO SCH (08:05)
[2023-01-30] MEDS: Mometasone/Formoter 100/5 MDI INH SCH ×2 (08:08→19:22)
[2023-01-30] MEDS: cefTRIAXone 2 gm/50 mL D5W 2 GM/50 ML BAG IV SCH (12:21)
[2023-01-30] MEDS: Warfarin DAILY REMINDER **NOTE FOLLOW UP SCH ×2 (16:36→19:08)
[2023-01-30] MEDS: Albuterol HFA INHALER 8 gm MDI INH PRN (21:20)
[2023-01-31 05:57] LABS: ABS Basophils 0.1 10^3/uL (0.0-0.1); ABS Eosinophils 0.2 10^3/uL (0.0-0.5); ABS Lymphocytes 0.6 10^3/uL (1.0-4.8); ABS Monocytes 0.9 10^3/uL (0.0-1.1); ABS Nucleated RBC 0.01 10^3/ul; Eosinophil % 1.9 %; Hematocrit 24.9 % (38-53); Hemoglobin 8.6 g/dL (13.2-16.3); Lymphocyte % 5.2 %; Mean Corpuscular Hemoglobin 32.9 pg (27-33); Mean Corpuscular Hgb Conc 34.6 g/dL (31-36); Mean Corpuscular Volume 95.2 fL (80-97); Mean Platelet Volume 7.1 fL (7.5-11.2); Platelet Count 411 10^3/uL (150-450); Red Blood Count 2.62 10^6/uL (4.06-5.63); Red Cell Distribution Width 15.3 % (12-17); White Blood Count 11.8 10^3/uL (3.6-10.2)
[2023-01-31 06:08] LABS: INR 2.88 (0.88-1.18)
[2023-01-31 06:18] LABS: Calcium 8.3 mg/dL (8.6-10.3); Creatinine, Serum 0.88 mg/dL (0.67-1.17); Magnesium 2.1 mg/dL (1.9-2.7); Potassium 4.5 mmol/L (3.5-5.0); eGFR CKD-EPI 84.8 (>60)
[2023-01-31] MEDS: Mometasone/Formoter 100/5 MDI INH SCH ×2 (07:38→19:38)
[2023-01-31 08:44] LABS: C Reactive Protein 162.71 mg/L (<8.01)
[2023-01-31] MEDS: Aspirin EC 81 mg TAB.EC (enteric coated) PO SCH (08:48)
[2023-01-31] MEDS: Polyethylene Glycol 3350 17 GM PACKET PO SCH (08:49)
[2023-01-31] MEDS: Senna TAB 8.6 mg TAB PO SCH (08:49)
[2023-01-31] MEDS: cefTRIAXone 2 gm/50 mL D5W 2 GM/50 ML BAG IV SCH (13:11)
[2023-01-31 15:11] LABS: Body Fluid WBC 27467 /mcL
[2023-01-31 15:13] LABS: Body Fluid Appearance Bloody; Body Fluid Mono 5 %; Body Fluid Source Synovial Fluid; Body Fluid Total Cells Counted 200
[2023-01-31 15:14] LABS: Body Fluid Color Red
[2023-01-31] MEDS ORDERED: Warfarin - No Order Today **NOTE FOLLOW UP ONE (17:00)
[2023-01-31] MEDS: Warfarin DAILY REMINDER **NOTE FOLLOW UP SCH (17:07)
[2023-02-01 06:32] LABS: ABS Basophils 0.1 10^3/uL (0.0-0.1); ABS Eosinophils 0.3 10^3/uL (0.0-0.5); ABS Lymphocytes 0.6 10^3/uL (1.0-4.8); ABS Neutrophils 11.6 10^3/uL (1.5-7.6); Eosinophil % 2.4 %; Hematocrit 23.8 % (38-53); Hemoglobin 8.1 g/dL (13.2-16.3); Lymphocyte % 4.7 %; Mean Corpuscular Hemoglobin 32.4 pg (27-33); Mean Corpuscular Volume 95.4 fL (80-97); Mean Platelet Volume 7.2 fL (7.5-11.2); Platelet Count 411 10^3/uL (150-450); Red Blood Count 2.49 10^6/uL (4.06-5.63); Red Cell Distribution Width 15.3 % (12-17); White Blood Count 13.7 10^3/uL (3.6-10.2)
[2023-02-01 06:35] LABS: INR 3.15 (0.88-1.18)
[2023-02-01 07:00] LABS: Calcium 8.1 mg/dL (8.6-10.3); Creatinine, Serum 0.86 mg/dL (0.67-1.17); Magnesium 1.9 mg/dL (1.9-2.7); Potassium 4.6 mmol/L (3.5-5.0); eGFR CKD-EPI 85.4 (>60)
[2023-02-01] MEDS: Mometasone/Formoter 100/5 MDI INH SCH (07:55)
[2023-02-01 08:58] LABS: C Reactive Protein 155.11 mg/L (<8.01)
[2023-02-01] MEDS: Polyethylene Glycol 3350 17 GM PACKET PO SCH (10:42)
[2023-02-01] MEDS: Senna TAB 8.6 mg TAB PO SCH (10:42)
[2023-02-01] MEDS: Aspirin EC 81 mg TAB.EC (enteric coated) PO SCH (10:43)
[2023-02-01] MEDS: cefTRIAXone 2 gm/50 mL D5W 2 GM/50 ML BAG IV SCH (13:00)
[2023-02-01 16:10] VITALS: BP 102/48
[2023-02-01] MEDS: Albuterol HFA INHALER 8 gm MDI INH PRN (16:18)
[2023-02-03 20:25] LABS: B. burgdorferi PCR Negative (Negative); B. garinii/B. afzellii PCR Negative (Negative)
== END 2023-02-01 16:35 | DRG 853 ==
LOC: EDHOLD 10:51 → ED 10:51 → SUATTDRO 20:33 → MEDTELE 22:14 → SUATTDRO 01-22 11:20 → ICU 01-22 12:46 → MEDTELE 01-23 17:22
PROVIDERS: ADMIT Hospitalist; ATTEND Hospitalist